=== PATIENT | male | born 1955 | race Caucasian/White ===

== ENCOUNTER 2021-06-14 10:27 | Emergency (ER) | payer OTHER, BC ==
[2021-06-14] MEDS ORDERED: DEXA6 PO (12:00)
== END 2021-06-14 12:10 | disposition home or self-care (01) ==
LOC: ER 10:27
DX: U07.1 COVID-19 (principal)
CPT/HCPCS: 99283

== ENCOUNTER 2024-07-07 09:42 | Inpatient (IN) | payer OTHER ==
[~2024-07-07] VITALS: Ht 190.5 cm; Wt 102.9 kg
[~2024-07-07 09:42] MED LIST: CALCIUM CARBONATE PO; DEXA6 PO; DILT120 PO; DOCU100 PO; FAMO20 PO; GABA100 PO; LEVSOD75 PO; LORA10ER PO; MELA3 PO; PANT40 PO; PRAZ2 PO; SENNA LAXATIVE8.6 MG PO; TOCO1000 PO; TRAZ100 PO; VENL75ER PO; XARELTO20 MG PO
[2024-07-07 10:10] LABS: Calcium, Ionized (POC) 1.06 mmol/L (1.10-1.46); Chloride (POC) 105 mmol/L (98-108); Creatinine (POC) 0.8 mg/dL (0.8-1.3); Glucose (ISTAT POC) 139 mg/dL (70-99); Hemoglobin (POC) 6.8 g/dL (13.5-17.5); Sodium (POC) 137 mmol/L (135-148); Total CO2 (POC) 23 mmol/L (21-32)
[2024-07-07] MEDS ORDERED: Pantoprazole Sodium 40 MG in NS 50 ML IV SCH (10:10)
[2024-07-07] MEDS ORDERED: NS 1,000 ML IV SCH (10:10)
[2024-07-07] MEDS ORDERED: Pantoprazole Sodium 40 MG Injection IV ONE (10:10)
[2024-07-07 10:21] LABS: BASOPHILS PERCENT AUTO 0 % (0-2); EOSINOPHILS ABSOLUTE AUTO 0.02 K/mm3 (0.00-0.68); EOSINOPHILS PERCENT AUTO 0 % (0-6); Hematocrit 20.7 % (37.0-53.0); Hemoglobin 6.5 g/dL (13.5-17.5); IMMATURE GRAN ABSOLUTE AUTO 0.05 K/mm3 (0.00-0.10); IMMATURE GRAN PERCENT AUTO 1 % (0-1); LYMPHOCYTES ABSOLUTE AUTO 0.99 K/mm3 (0.84-5.20); LYMPHOCYTES PERCENT AUTO 21 % (21-46); MONOCYTES ABSOLUTE AUTO 0.34 K/mm3 (0.16-1.47); MONOCYTES PERCENT AUTO 7 % (4-13); Mean Corpuscular HGB 26.4 pg (26.0-34.0); Mean Corpuscular HGB Conc 31.4 g/dL (31.5-36.5); Mean Corpuscular Volume 84 fL (80-100); Mean Platelet Volume 11.3 fL (9.1-12.4); NEUTROPHILS ABSOLUTE AUTO 3.31 K/mm3 (1.96-9.15); NEUTROPHILS PERCENT AUTO 70 % (41-73); Platelet Count 193 K/mm3 (150-400); RDW Coefficient Variation 15.5 % (11.7-14.2); RDW Standard Deviation 46.4 fL (35.1-46.3); Red Blood Cell Count 2.46 M/mm3 (4.30-5.90); White Blood Cell Count 4.71 K/mm3 (4.00-11.30)
[2024-07-07 10:49] LABS: Albumin, Blood 2.9 g/dL (3.4-5.0); Bilirubin, Total 0.4 mg/dL (0.1-1.0); Bun/Creatinine Ratio 39.7 (12.0-20.0); Calcium, Blood 8.4 mg/dL (8.5-10.1); Creatinine, Blood 0.86 mg/dL (0.60-1.20); Globulin, Blood 2.8 g/dL (2.2-4.0); Potassium, Blood 4.2 mmol/L (3.5-5.5); Total Protein, Blood 5.7 g/dL (6.4-8.2)
[2024-07-07] MEDS ORDERED: Sucralfate 1000MG / 10ML UD BTL PO ONE (11:05)
[2024-07-07] MEDS ORDERED: Acetaminophen 325 MG TABLET PO PRN (12:55)
[2024-07-07] MEDS ORDERED: FLU VACC TS2024-25(6MOS UP)/PF 45 MCG/0.5 ML SYRINGE IM SCH (12:55)
[2024-07-07] MEDS ORDERED: Melatonin 3 MG Tab PO PRN (14:05)
[2024-07-07] MEDS ORDERED: Sennosides 8.6 MG Tab PO PRN (14:10)
[2024-07-07 16:23] VITALS: BP 116/86
[2024-07-07] MEDS ORDERED: XARELTO20 MG PO (16:29)
[2024-07-07] MEDS ORDERED: Sucralfate 1 GM Tab PO SCH (16:30)
[2024-07-07 17:17] LABS: Hematocrit 27.6 % (37.0-53.0); Hemoglobin 8.8 g/dL (13.5-17.5)
--- NOTE | 2024-07-07 18:05 | NUR ---
SHIFT SUMMARY PATIENT ADMITED TO MEDICAL FLOOR THIS SHIFT FROM ED. A/O X4. ONE EPISODE OF RED/BLACK STOOL. RECEIVING PRBC ON ARRIVAL, FINISHED 1610. LABS TO BE DONE AT 1700, H&H RESULTED 8.8 AND 27.6. PROTONIX DRIP AT 10/HR INFUSING. SKIN INTACT. ABLE TO MAKE NEEDS KNOWN. CALL LIGHT IN REACH, CARES ONGOING.
[2024-07-07] MEDS ORDERED: Prazosin HCL 5 MG Cap PO SCH (21:00)
[2024-07-07] MEDS ORDERED: Docusate Sodium 100 MG Cap PO SCH (21:00)
[2024-07-07] MEDS ORDERED: TraZODone HCl 100 MG Tab PO SCH (21:00)
[2024-07-07] MEDS ORDERED: Gabapentin 100 MG Cap PO SCH (21:00)
[2024-07-07] MEDS ORDERED: Prazosin HCl 1 MG Cap PO SCH (21:00)
[2024-07-07 21:34] VITALS: BP 126/82
[2024-07-07] MEDS ORDERED: ALBU90OI INH (23:27)
[2024-07-07] MEDS ORDERED: ALEVE ARTHRITI100 GM TOP (23:28)
[2024-07-07] MEDS ORDERED: FAMO20 PO (23:38)
[2024-07-07] MEDS ORDERED: AQUAPHOR ITCH R28 GM TOP (23:38)
[2024-07-07] MEDS ORDERED: FLONASE ALLERG9.9 M2 (23:39)
[2024-07-07] MEDS ORDERED: HYDR25SUP PR (23:39)
[2024-07-07] MEDS ORDERED: IPRAT-ALBUT 0.5-3 ML INH (23:40)
[2024-07-07] MEDS ORDERED: MONT10T PO (23:41)
[2024-07-07] MEDS ORDERED: ANTIFUNGAL30 GM TOP (23:43)
[2024-07-08] VITALS (13 sets, daily range): BP systolic 119–140; BP diastolic 74–83
[2024-07-08 04:49] LABS: BASOPHILS ABSOLUTE AUTO 0.01 K/mm3 (0.00-0.23); BASOPHILS PERCENT AUTO 0 % (0-2); EOSINOPHILS ABSOLUTE AUTO 0.01 K/mm3 (0.00-0.68); EOSINOPHILS PERCENT AUTO 0 % (0-6); Hematocrit 21.8 % (37.0-53.0); IMMATURE GRAN ABSOLUTE AUTO 0.08 K/mm3 (0.00-0.10); IMMATURE GRAN PERCENT AUTO 2 % (0-1); LYMPHOCYTES ABSOLUTE AUTO 1.46 K/mm3 (0.84-5.20); LYMPHOCYTES PERCENT AUTO 40 % (21-46); MONOCYTES PERCENT AUTO 14 % (4-13); Mean Corpuscular HGB 27.6 pg (26.0-34.0); Mean Corpuscular HGB Conc 32.1 g/dL (31.5-36.5); Mean Corpuscular Volume 86 fL (80-100); NEUTROPHILS ABSOLUTE AUTO 1.59 K/mm3 (1.96-9.15); NEUTROPHILS PERCENT AUTO 44 % (41-73); Platelet Count 143 K/mm3 (150-400); RDW Coefficient Variation 15.6 % (11.7-14.2); Red Blood Cell Count 2.54 M/mm3 (4.30-5.90); White Blood Cell Count 3.65 K/mm3 (4.00-11.30)
[2024-07-08 05:25] LABS: Bun/Creatinine Ratio 34.1 (12.0-20.0); Calcium, Blood 8.3 mg/dL (8.5-10.1); Creatinine, Blood 0.82 mg/dL (0.60-1.20); Potassium, Blood 3.7 mmol/L (3.5-5.5)
--- NOTE | 2024-07-08 05:28 | NUR ---
SHIFT SUMMARY PATIENT RECENT GI BLEED FROM DUODENAL ULCER RECENTLY ON 06/21/24. PT HX OF PTSD, HTN, GI BLEED, AND RECENTLY DIAGNOSED LYMPHOMA. LUNGS PRESENT CLEAR BILATERALLY, NORMAL HEART SINUS RHYTHM, BOWEL SOUNDS PRESENT IN FOUR QUADRANTS. PT TOOK HS MEDIATIONS, ASKED FOR A FAN TO COOL HIS ROOM DOWN. PT POLITE AND RECEPTIVE TO CARE. BED AT LOW POSITION, RAILS TIMES 2, CALL LIGHT WITHIN REACH.
[2024-07-08] MEDS ORDERED: Levothyroxine Sodium 0.075 MG Tab PO SCH (06:00)
[2024-07-08] MEDS ORDERED: Loratadine 10 MG Tab PO SCH (09:00)
[2024-07-08] MEDS ORDERED: dilTIAZem HCL 120 MG CAP.CD PO SCH (09:00)
[2024-07-08] MEDS ORDERED: Venlafaxine HCl 75 MG CapCR PO SCH (09:00)
[2024-07-08 09:26] LABS: Hematocrit 20.9 % (37.0-53.0); Hemoglobin 6.7 g/dL (13.5-17.5)
[2024-07-08] MEDS ORDERED: NS 250 ML IV PRN (12:30)
[2024-07-08 16:25] LABS: Hematocrit 22.3 % (37.0-53.0); Hemoglobin 7.3 g/dL (13.5-17.5)
[2024-07-08 16:44] LABS: Percent Saturation 15.9 % (20.0-50.0)
[2024-07-08] MEDS ORDERED: Sod Ferric Gluc Complx/Sucrose 125 MG in NS 100 ML IV SCH (16:56)
--- NOTE | 2024-07-08 18:27 | NUR ---
PT QUITE PLEASANT TODAY, NO C/O PAIN, DID RECEIVE 1 U PRBC THIS SHIFT. H/H UP TO 7.3. SBA AMBULATORY TO BATHROOM TODAY. DR KLEIN CONTINUING PROTONIX KIM. NO REPORT OF STOOL TODAY. NO OTHER NEW CONCERNS NOTED. BED IN LOW POSITION, QALL LITE IN REACH, CALLS APPROP
[2024-07-08 21:25] LABS: Hematocrit 23.2 % (37.0-53.0); Hemoglobin 7.5 g/dL (13.5-17.5)
[2024-07-09] VITALS (10 sets, daily range): BP systolic 106–140; BP diastolic 76–87
--- NOTE | 2024-07-09 05:00 | NUR ---
SUMMARY- NO NEW ISSUES NOTED. ORDERED PROTONIX RAN CONTINOUSLY ORDERED. PT HAS BEEN VOIDING BUT NO BM THIS SHIFT. PT DENIES DIZZINESS OR WEAKNESS WHEN AMBULATING. PT HAS BEEN RESTING QUIETLY IN NO DISTRESS. CALL LIGHT IN REACH.
[2024-07-09 05:09] LABS: BASOPHILS ABSOLUTE AUTO 0.01 K/mm3 (0.00-0.23); BASOPHILS PERCENT AUTO 0 % (0-2); EOSINOPHILS ABSOLUTE AUTO 0.01 K/mm3 (0.00-0.68); EOSINOPHILS PERCENT AUTO 0 % (0-6); Hematocrit 21.8 % (37.0-53.0); Hemoglobin 6.9 g/dL (13.5-17.5); IMMATURE GRAN ABSOLUTE AUTO 0.04 K/mm3 (0.00-0.10); IMMATURE GRAN PERCENT AUTO 2 % (0-1); LYMPHOCYTES ABSOLUTE AUTO 0.73 K/mm3 (0.84-5.20); LYMPHOCYTES PERCENT AUTO 32 % (21-46); MONOCYTES PERCENT AUTO 18 % (4-13); Mean Corpuscular HGB 27.4 pg (26.0-34.0); Mean Corpuscular HGB Conc 31.7 g/dL (31.5-36.5); Mean Corpuscular Volume 87 fL (80-100); Mean Platelet Volume 11.3 fL (9.1-12.4); NEUTROPHILS ABSOLUTE AUTO 1.08 K/mm3 (1.96-9.15); NEUTROPHILS PERCENT AUTO 48 % (41-73); Platelet Count 123 K/mm3 (150-400); RDW Coefficient Variation 15.8 % (11.7-14.2); RDW Standard Deviation 47.7 fL (35.1-46.3); Red Blood Cell Count 2.52 M/mm3 (4.30-5.90); White Blood Cell Count 2.27 K/mm3 (4.00-11.30)
[2024-07-09] MEDS ORDERED: Polyethylene Glycol 3350 17 gm PO SCH (09:00)
[2024-07-09 16:11] LABS: Hematocrit 23.4 % (37.0-53.0); Hemoglobin 7.6 g/dL (13.5-17.5)
--- NOTE | 2024-07-09 17:56 | NUR ---
PATIENT IS A&OX4, PLEASANT AND COOPERATIVE. AMBULATES TO BATHROOM WITH SBAX1. RECEIVED BLOOD TRANSFUSION, HGB 7.6. PATIENT HAD NEW IV PLACED TO LEFT WRIST, IV TO RIGHT AC REMOVED. PROTONIX RUNNING CONTINUOUSLY AT 10ML/HR. PATIENT ON CLEAR LIQUID DIET. BED IN LOW POSITION AND CALL LIGHT WITHIN REACH.
--- NOTE | 2024-07-10 04:35 | NUR ---
SUMMARY- PT HAS BEEN RESTING QUIETLY THIS SHIFT. PT HAS BEEN VOIDING AND HAS NOT REPORTED ANY BM. PT ORDERED CONTINOUS PROTONIX IS RUNNING. PT TURNS SELF. CALL LIGHT IN REACH.
[2024-07-10 05:15] VITALS: BP 125/84
[2024-07-10 05:44] LABS: Hematocrit 24.2 % (37.0-53.0); Hemoglobin 7.8 g/dL (13.5-17.5); Mean Corpuscular HGB 27.9 pg (26.0-34.0); Mean Corpuscular HGB Conc 32.2 g/dL (31.5-36.5); Mean Corpuscular Volume 86 fL (80-100); Mean Platelet Volume 11.3 fL (9.1-12.4); Platelet Count 124 K/mm3 (150-400); RDW Coefficient Variation 16.1 % (11.7-14.2); RDW Standard Deviation 48.7 fL (35.1-46.3); White Blood Cell Count 2.14 K/mm3 (4.00-11.30)
[2024-07-10 06:17] LABS: Bun/Creatinine Ratio 10.5 (12.0-20.0); Calcium, Blood 8.4 mg/dL (8.5-10.1); Creatinine, Blood 0.86 mg/dL (0.60-1.20); Potassium, Blood 3.5 mmol/L (3.5-5.5)
[2024-07-10 06:38] LABS: BAND PERCENT MAN 3 % (0-8); BASOPHILS ABSOLUTE MAN 0.04 K/mm3 (0.00-0.23); BASOPHILS PERCENT MAN 2 % (0-2); EOSINOPHILS ABSOLUTE MAN 0.02 K/mm3 (0.00-0.68); EOSINOPHILS PERCENT MAN 1 % (0-6); LYMPHOCYTES % ATYPICAL MANUAL 1 % (0-0); LYMPHOCYTES ABSOLUTE MAN 0.66 K/mm3 (0.84-5.20); LYMPHOCYTES PERCENT MAN 30 % (21-46); MONOCYTES ABSOLUTE MAN 0.34 K/mm3 (0.16-1.47); MONOCYTES PERCENT MAN 16 % (4-13); MYELOCYTE ABSOLUTE MAN 0.02 K/mm3 (0.00-0.00); MYELOCYTE PERCENT MAN 1 % (0-0); NEUTROPHILS ABSOLUTE MAN 1.04 K/mm3 (1.96-9.15); SEG NEUTROPHILS PERCENT MAN 46 % (41-73); TOTAL CELLS COUNTED 100
[2024-07-10 07:48] VITALS: BP 126/87
[2024-07-10] MEDS ORDERED: Potassium Chl 20MEQ/Water100ML 100 ML IV SCH (08:05)
[2024-07-10 14:09] LABS: Hematocrit 26.7 % (37.0-53.0); Hemoglobin 8.4 g/dL (13.5-17.5)
[2024-07-10 15:05] VITALS: BP 133/82
--- NOTE | 2024-07-10 16:14 | NUR ---
PT DID HAVE ONE BLACK TARRY STOOL TO DAY. HGB APPEARS TO BE REMAINING STABLE. PLAN IS TO DISCHARGE TOMORROW. PT IS INDEPENDENT IN THE ROOM. ALERT AND ORIENTEDX4, ABLE TO MAKE NEEDS KNOWN. FULL LIQUID DIET, TOLORATING WELL. NO ACUTE CHANGES THIS SHIFT.
[2024-07-10] MEDS ORDERED: Pantoprazole Sodium 40 MG Tab PO SCH (16:30)
[2024-07-10 19:47] VITALS: BP 119/72
[2024-07-11 04:01] VITALS: BP 104/74
--- NOTE | 2024-07-11 04:49 | NUR ---
SHIFT SUMMARY PATIENT SLEPT MOST OF THE NIGHT. NO BM'S REPORTED. NO PRN MED REQUESTED.
[2024-07-11 05:49] LABS: BASOPHILS ABSOLUTE AUTO 0.01 K/mm3 (0.00-0.23); BASOPHILS PERCENT AUTO 0 % (0-2); EOSINOPHILS ABSOLUTE AUTO 0.04 K/mm3 (0.00-0.68); EOSINOPHILS PERCENT AUTO 2 % (0-6); Hematocrit 25.7 % (37.0-53.0); Hemoglobin 8.2 g/dL (13.5-17.5); IMMATURE GRAN ABSOLUTE AUTO 0.04 K/mm3 (0.00-0.10); IMMATURE GRAN PERCENT AUTO 2 % (0-1); LYMPHOCYTES ABSOLUTE AUTO 0.95 K/mm3 (0.84-5.20); LYMPHOCYTES PERCENT AUTO 36 % (21-46); MONOCYTES ABSOLUTE AUTO 0.54 K/mm3 (0.16-1.47); MONOCYTES PERCENT AUTO 21 % (4-13); Mean Corpuscular HGB Conc 31.9 g/dL (31.5-36.5); Mean Corpuscular Volume 88 fL (80-100); Mean Platelet Volume 11.3 fL (9.1-12.4); NEUTROPHILS ABSOLUTE AUTO 1.03 K/mm3 (1.96-9.15); NEUTROPHILS PERCENT AUTO 40 % (41-73); Platelet Count 133 K/mm3 (150-400); RDW Coefficient Variation 16.3 % (11.7-14.2); RDW Standard Deviation 49.8 fL (35.1-46.3); Red Blood Cell Count 2.93 M/mm3 (4.30-5.90); White Blood Cell Count 2.61 K/mm3 (4.00-11.30)
[2024-07-11 06:22] LABS: Bun/Creatinine Ratio 9.4 (12.0-20.0); Calcium, Blood 8.6 mg/dL (8.5-10.1); Creatinine, Blood 0.85 mg/dL (0.60-1.20); Potassium, Blood 3.8 mmol/L (3.5-5.5)
[2024-07-11 07:44] VITALS: BP 121/86
[2024-07-11] MEDS ORDERED: Acetaminophen650 M1 PO (11:58)
[2024-07-11] MEDS ORDERED: SUCR1 PO (11:58)
--- NOTE | 2024-07-11 15:50 | NUR ---
report received verified, pt a/o x4 very pleasent but is anxious to go home today, vss, no s/s of distress, c/o pain to right elbow from previous iv infiltrate. ice bag placed and tylenol given. into see pt discharge orders given. discharge orders implemented and pt educated. iv dced, [facility]. cont mopnitor
[2024-07-12 18:58] LABS: IMMUNOGLOBULIN A 109 mg/dL (68-408); IMMUNOGLOBULIN G 702 mg/dL (768-1632); IMMUNOGLOBULIN M 45 mg/dL (35-263)
[2024-07-12 19:47] LABS: ALBUMIN 2.96 g/dL (3.75-5.01); ALPHA 1 GLOBULIN 0.28 g/dL (0.19-0.46); ALPHA 2 GLOBULIN 0.39 g/dL (0.48-1.05); BETA GLOBULIN 0.56 g/dL (0.48-1.10); GAMMA 0.71 g/dL (0.62-1.51); IMMUNOFIXATION REFLEX IFE Done; TOTAL PROTEIN,SERUM 4.9 g/dL (6.3-8.2)
== END 2024-07-11 14:25 | disposition home or self-care (01) | DRG 378 ==
LOC: ER 09:42 → MEDS 13:53 → ENPENDDIS 07-11 11:27 → MEDS 07-11 14:25
PROVIDERS: Emergency Medicine; ADMIT Internal Medicine
PROC: 30233N1 Transfusion of Nonautologous Red Blood Cells into Peripheral Vein, Percutaneous Approach (ICD-10-PCS; principal; 2024-07-07)
DX: K26.4 Chronic or unspecified duodenal ulcer with hemorrhage (principal); C85.10 Unspecified B-cell lymphoma, unspecified site; D68.32 Hemorrhagic disorder due to extrinsic circulating anticoagulants; D62 Acute posthemorrhagic anemia; I48.0 Paroxysmal atrial fibrillation; I10 Essential (primary) hypertension; F41.8 Other specified anxiety disorders; T45.515A Adverse effect of anticoagulants, initial encounter; F43.12 Post-traumatic stress disorder, chronic; Z98.890 Other specified postprocedural states; Z87.891 Personal history of nicotine dependence; Z79.01 Long term (current) use of anticoagulants; Z86.010 Personal history of colon polyps; Z87.19 Personal history of other diseases of the digestive system; Z88.8 Allergy status to other drugs, medicaments and biological substances; Z79.890 Hormone replacement therapy; Z79.899 Other long term (current) drug therapy
CPT/HCPCS: 36415; 36430; 80047; 80048; 80053; 82728; 82784; 83521; 83540; 83550; 84155; 84165; 85014; 85018; 85025; 86334; 86850; 86900; 86901; 86923; 93005; 93010; 94760; 96365; 96366; 99285-25; A9270; J2470; J2916; J3480; J7030; J7050; P9016

== ENCOUNTER 2024-12-20 07:08 | Day surgery (SDC) | payer OTHER ==
[2024-12-20] VITALS (11 sets, daily range): BP systolic 93–122; BP diastolic 62–88
[~2024-12-20] VITALS: Ht 193 cm; Wt 97.9 kg
[~2024-12-20 07:08] MED LIST changes: +ALBU90OI INH; +ALEVE ARTHRITI100 GM TOP; +ANTIFUNGAL30 GM TOP; +AQUAPHOR ITCH R28 GM TOP; +Acetaminophen650 M1 PO; +CeFAZolin Sodium 2,000 MG VIAL ONE; +CeFAZolin Sodium 2,000 MG in NS 100 ML IV SCH; +FLONASE ALLERG9.9 M2; +HYDR25SUP PR; +IPRAT-ALBUT 0.5-3 ML INH; +Lactated Ringer's 1,000 ML IV SCH; +Lidocaine HCl 1% 30 ML SDV ONE; +METAMUCIL POWD798 GM PO; +MONT10T PO; +SUCR1 PO
[2024-12-20] MEDS ORDERED: propofoL 20 ML IV ONE (07:47)
--- NOTE | 2024-12-20 08:12 | NUR ---
Ambulatory in Day Surgery WITH CANE. BROUGHT TO UNIT VIA W/C WITH DAUGHTER. History, Chart, Medications and Allergies reviewed before start of procedure. Pre-Op teaching done. Pt verbalizes understanding. Patient States Post-Procedure ride home has been arranged WITH DAUGHTER. BELONGINGS INCLUDING CANE PLACED UNDER GURN.
[2024-12-20] MEDS ORDERED: Ondansetron HCl 2 MG / ML 2ML Vial ONE (08:42)
--- NOTE | 2024-12-20 09:50 | NUR ---
PT TO DAY SURGERY STEP DOWN FROM PACU WITH MEDIPORT PLACEMENT. BEDSIDE REPORT RECEIVED. PT IS AWAKE, ALERT AND ORIENTED; ABLE TO MOVE SELF IN BED. ASKING FOR WATER. PT HAS AN INCISION ON UPPER RIGHT CHEST THAT IS CLOSED WITH EXOFIN AND C/D/I, AND AN INCISION ON RIGHT LOWER NECK THAT IS CLOSED WITH EXOFIN AND IS C/D/I. PT DENIES PAIN AT THIS TIME.
--- NOTE | 2024-12-20 09:54 | NUR ---
PT TOLERTING PO FLUIDS. DAUGHTER AT BEDSIDE.
--- NOTE | 2024-12-20 10:05 | NUR ---
PT DECLINES HOSPITAL ICE PACK. Discharge instructions reviewed with patient. Patient verbalizes understanding. Copy given to patient to take home. Patient States Post-Procedure ride home has been arranged.
--- NOTE | 2024-12-20 10:17 | NUR ---
Patient up to Ambulate independently. Gait steady. Discharged via wheelchair to private car for ride home.
== END 2024-12-20 10:18 | disposition home or self-care (01) ==
LOC: ORSCMMR 07:08 → ORD 08:30 → ORSCMMR 08:30
DX: C88.40 Extranodal marginal zone B-cell lymphoma of mucosa-associated lymphoid tissue [MALT-lymphoma] not having achieved remission (principal); I10 Essential (primary) hypertension; I48.91 Unspecified atrial fibrillation; Z87.891 Personal history of nicotine dependence; E03.9 Hypothyroidism, unspecified; F43.10 Post-traumatic stress disorder, unspecified; Z79.899 Other long term (current) drug therapy
CPT/HCPCS: 71045; 77001; C1788; J0690; J1642; J2405; J2704; J7120

== ENCOUNTER 2024-12-24 09:54 | Emergency (ER) | payer OTHER ==
[~2024-12-24] VITALS: Ht 188 cm; Wt 90.7 kg
[~2024-12-24 09:54] MED LIST changes: -CeFAZolin Sodium 2,000 MG VIAL ONE; -CeFAZolin Sodium 2,000 MG in NS 100 ML IV SCH; -Lactated Ringer's 1,000 ML IV SCH; -Lidocaine HCl 1% 30 ML SDV ONE
[2024-12-24] MEDS ORDERED: [UNRECOGNIZED DRUG - OTHER] PO (10:27)
[2024-12-24] MEDS ORDERED: Prednisone10 MG PO (10:34)
[2024-12-24] MEDS ORDERED: TIOT18 INH (10:35)
[2024-12-24 11:28] LABS: Hemoglobin 8.7 g/dL (13.5-17.5); Mean Corpuscular HGB 23.7 pg (26.0-34.0); Mean Corpuscular HGB Conc 32.2 g/dL (31.5-36.5); Mean Corpuscular Volume 74 fL (80-100); RDW Coefficient Variation 16.3 % (11.7-14.2); RDW Standard Deviation 43.7 fL (35.1-46.3); Red Blood Cell Count 3.67 M/mm3 (4.30-5.90); White Blood Cell Count 6.73 K/mm3 (4.00-11.30)
[2024-12-24 11:32] LABS: Albumin, Blood 2.5 g/dL (3.4-5.0); Albumin/Globulin Ratio 0.6 (0.8-1.8); Bilirubin, Indirect 1.5 mg/dL (0.1-0.7); Bilirubin, Total 5.5 mg/dL (0.1-1.0); Bun/Creatinine Ratio 13.8 (12.0-20.0); Calcium, Blood 8.6 mg/dL (8.5-10.1); Creatinine, Blood 0.65 mg/dL (0.60-1.20); Globulin, Blood 3.9 g/dL (2.2-4.0); Potassium, Blood 3.4 mmol/L (3.5-5.5); Total Protein, Blood 6.4 g/dL (6.4-8.2)
[2024-12-24 12:10] LABS: BASOPHILS PERCENT MAN 0 % (0-2); EOSINOPHILS PERCENT MAN 0 % (0-6); LYMPHOCYTES ABSOLUTE MAN 0.06 K/mm3 (0.84-5.20); LYMPHOCYTES PERCENT MAN 1 % (21-46); MONOCYTES ABSOLUTE MAN 1.41 K/mm3 (0.16-1.47); MONOCYTES PERCENT MAN 21 % (4-13); Mean Platelet Volume 11.8 fL (9.1-12.4); NEUTROPHILS ABSOLUTE MAN 5.24 K/mm3 (1.96-9.15); Platelet Count 123 K/mm3 (150-400); SEG NEUTROPHILS PERCENT MAN 78 % (41-73); TOTAL CELLS COUNTED 100
[2024-12-24 14:05] VITALS: BP 116/77
== END 2024-12-24 14:30 | disposition home or self-care (01) ==
LOC: ER 09:54
PROVIDERS: Student in an Organized Health Care Education/Training Program
DX: D64.9 Anemia, unspecified (principal); N99.518 Other cystostomy complication; I48.0 Paroxysmal atrial fibrillation; I10 Essential (primary) hypertension; C88.40 Extranodal marginal zone B-cell lymphoma of mucosa-associated lymphoid tissue [MALT-lymphoma] not having achieved remission; Z87.891 Personal history of nicotine dependence; Z88.8 Allergy status to other drugs, medicaments and biological substances; Z79.899 Other long term (current) drug therapy
CPT/HCPCS: 72170; 80053; 82247; 82248; 83690; 85025; 86850; 86900; 86901; 99284-25

== ENCOUNTER 2025-01-01 09:07 | Day surgery (SDC) | payer OTHER ==
[~2025-01-01] VITALS: Ht 190.5 cm; Wt 95.0 kg
[~2025-01-01 09:07] MED LIST changes: +Prednisone10 MG PO; +TIOT18 INH; +[UNRECOGNIZED DRUG - OTHER] PO
[2025-01-01] MEDS ORDERED: NS 1,000 ML IV ONE (09:24)
[2025-01-01] MEDS ORDERED: NS 250 ML IV ONE (09:26)
[2025-01-01 09:45] VITALS: BP 121/87
[2025-01-01] MEDS ORDERED: Midazolam HCl 1MG / ML 2ML Vial ONE (10:12)
[2025-01-01] MEDS ORDERED: FentaNYL Citrate 50 MCG/ML 2 ML Injection ONE (10:13)
[2025-01-01 11:15] VITALS: BP 116/81
--- NOTE | 2025-01-01 11:31 | NUR ---
PT AND DAUGHTER VERBALIZES UNDERSTANDING WRITTEN AND VERBAL INSTRUCTIONS. DENIES QUESTIONS OR CONCERNS. PT MEDIPORT HEPORONIZED PRIOR TO DC. LI NEEDLE INTACT. NO BLEEDING NOTED. BANDAID APPLIED. PT DRESSES SELF WITHOUT DIFF. PT DC TO HOME VIA WC BY DAUGHTER
== END 2025-01-01 12:22 | disposition home or self-care (01) ==
LOC: MHTC 09:07
DX: T85.590A Other mechanical complication of bile duct prosthesis, initial encounter (principal); Y83.8 Other surgical procedures as the cause of abnormal reaction of the patient, or of later complication, without mention of misadventure at the time of the procedure; C85.90 Non-Hodgkin lymphoma, unspecified, unspecified site
CPT/HCPCS: 47536; 99152; C1729; C1769; C1887; J1642; J2250; J3010; J7030; J7050; Q9967

== ENCOUNTER 2025-01-07 12:35 | Inpatient (IN) | payer OTHER ==
[~2025-01-07] VITALS: Ht 190.5 cm; Wt 97.3 kg
[2025-01-07 13:45] LABS: BASOPHILS ABSOLUTE AUTO 0.02 K/mm3 (0.00-0.23); BASOPHILS PERCENT AUTO 0 % (0-2); EOSINOPHILS ABSOLUTE AUTO 0.02 K/mm3 (0.00-0.68); EOSINOPHILS PERCENT AUTO 0 % (0-6); Hematocrit 37.9 % (37.0-53.0); Hemoglobin 12.1 g/dL (13.5-17.5); IMMATURE GRAN ABSOLUTE AUTO 0.24 K/mm3 (0.00-0.10); IMMATURE GRAN PERCENT AUTO 3 % (0-1); LYMPHOCYTES ABSOLUTE AUTO 0.21 K/mm3 (0.84-5.20); LYMPHOCYTES PERCENT AUTO 3 % (21-46); MONOCYTES ABSOLUTE AUTO 0.74 K/mm3 (0.16-1.47); MONOCYTES PERCENT AUTO 9 % (4-13); Mean Corpuscular HGB Conc 31.9 g/dL (31.5-36.5); Mean Corpuscular Volume 72 fL (80-100); NEUTROPHILS ABSOLUTE AUTO 7.24 K/mm3 (1.96-9.15); NEUTROPHILS PERCENT AUTO 86 % (41-73); Platelet Count 91 K/mm3 (150-400); RDW Coefficient Variation 18.5 % (11.7-14.2); RDW Standard Deviation 45.7 fL (35.1-46.3); Red Blood Cell Count 5.26 M/mm3 (4.30-5.90); White Blood Cell Count 8.47 K/mm3 (4.00-11.30)
[2025-01-07] MEDS ORDERED: Ondansetron HCl 2 MG / ML 2ML Vial IV ONE (14:05)
[2025-01-07 14:06] LABS: Albumin, Blood 2.8 g/dL (3.4-5.0); Albumin/Globulin Ratio 0.7 (0.8-1.8); Bilirubin, Total 3.9 mg/dL (0.1-1.0); Creatinine, Blood 1.5 mg/dL (0.60-1.20); Globulin, Blood 4.2 g/dL (2.2-4.0); Potassium, Blood 3.3 mmol/L (3.5-5.5)
[2025-01-07] MEDS ORDERED: Piperacillin/Tazobactam Sod 4.5 GM in NS 100 ML IV ONE (14:50)
[2025-01-07] MEDS ORDERED: Vancomycin HCL 1,250 MG in NS 250 ML IV ONE (15:05)
[2025-01-07] MEDS ORDERED: NS 1,000 ML IV SCH (15:20)
[2025-01-07] MEDS ORDERED: Metoclopramide HCl 5MG / ML 2ML Vial IV PRN (18:20)
[2025-01-07] MEDS ORDERED: Ondansetron HCl 2 MG / ML 2ML Vial IV PRN (18:20)
[2025-01-07] MEDS ORDERED: Potassium Chloride 20 MEQ TabCR PO ONE (19:00)
[2025-01-07] MEDS ORDERED: Lactated Ringer's 1,000 ML IV ONE (19:00)
[2025-01-07] MEDS ORDERED: Albuterol HFA200 ACT/6.7 GM INH INH PRN (19:00)
[2025-01-07] MEDS ORDERED: Lactated Ringer's 1,000 ML IV SCH (20:00)
[2025-01-07] MEDS ORDERED: Magnesium Sulf 2 GM/Water 50ML 50 ML IV STA (20:24)
[2025-01-07] MEDS ORDERED: Potassium Chl 20MEQ/Water100ML 100 ML IV STA (20:25)
[2025-01-07 20:28] VITALS: BP 103/68
[2025-01-07] MEDS ORDERED: Melatonin 3 MG Tab PO SCH (21:00)
[2025-01-07] MEDS ORDERED: TraZODone HCl 100 MG Tab PO SCH (21:00)
[2025-01-07] MEDS ORDERED: Prazosin HCl 1 MG Cap PO SCH (21:00)
[2025-01-07] MEDS ORDERED: Lactobacil 2-S.Thermo-Bifido 1 1 Cap PO SCH (21:00)
[2025-01-07] MEDS ORDERED: Gabapentin 100 MG Cap PO SCH (21:00)
[2025-01-07] MEDS ORDERED: Cefepime HCl 2,000 MG in NS 100 ML IV SCH (21:00)
--- NOTE | 2025-01-07 23:00 | NUR ---
ASSUMPTION OF CARE/TRANSFER NOTE THIS RN RECEIVED REPORT FROM LOUISE NKUTSON IN THE ED. PT TRANSFERRED TO PCU. PT SLID FROM GURNEY TO BED WITH ASSISTANCE. DAUGHTER AT BEDSIDE AND REPORTS PT HAS NOT BEEN ABLE TO STAND INDEPENDENTLY AND HAS BEEN WEEK AND UNSTEADY ON HIS FEET AT HOME. DAUGHTER NOW LIVES WITH PATIENT. PT A&O X3-4. FORGETFUL. DAUGHTER AND PATIENT REPORT RECENT COGNITIVE PROBLEMS WITH MEMORY AND CONFUSION. PT DENIES ABDOMINAL PAIN A REST UNLESS PALPATING ABDOMEN. BILIAR DRAIN TO RUQ TO DRAIN BILE. ST ON MONITOR WITH HR 100-110. ON RA WITH SPO2 >92% WHILE AWAKE; PT NOTED TO DESAT WHILE SLEEPING TO LOW-MID 80'S; PLACED ON 2L VIA NC. BP SOFT WITH SBP 90-100'S. MAP >65. TACHYPNEA NOTED WITH RR 22-24. PT CONTINENT OF URINE, USING URINAL IN BED WITH ASSISTANCE. DAUGHTER AT BEDSIDE TO ASSIST WITH HISTORY. MED REC DONE. POWERGLIDE PLACED. LR INFUSING PER EMAR. KCL AND MAG INFUSED PER EMAR. PT DENIES CHEST PAIN/PRESSURE. OCCASIONAL PVC'S NOTED ON MONITOR. BED IN LOWEST POSITION AND CALL LIGHT WITHIN REACH. BED ALARM ON FOR SAFETY.
[2025-01-07 23:39] VITALS: BP 100/60
[2025-01-08] VITALS (17 sets, daily range): BP systolic 78–136; BP diastolic 60–99
[2025-01-08] MEDS ORDERED: MetroNIDAZOLE 500MG/NS 100 ml 100 ML IV SCH
[2025-01-08] MEDS ORDERED: Vancomycin HCL 750 MG in NS 250 ML IV SCH (05:00)
[2025-01-08 05:19] LABS: Albumin/Globulin Ratio 0.6 (0.8-1.8); Bilirubin, Total 2.7 mg/dL (0.1-1.0); Bun/Creatinine Ratio 39.2 (12.0-20.0); Calcium, Blood 7.6 mg/dL (8.5-10.1); Creatinine, Blood 0.84 mg/dL (0.60-1.20); Globulin, Blood 3.2 g/dL (2.2-4.0); Magnesium, Blood 2.1 mg/dL (1.6-2.4); Potassium, Blood 3.6 mmol/L (3.5-5.5); Total Protein, Blood 5.2 g/dL (6.4-8.2)
[2025-01-08] MEDS ORDERED: Pantoprazole Sodium 40 MG Tab PO SCH (06:00)
[2025-01-08] MEDS ORDERED: Levothyroxine Sodium 0.075 MG Tab PO SCH (06:00)
--- NOTE | 2025-01-08 06:00 | NUR ---
PATIENT SUMMURY: ALERT AND ORIENTED X 3-4 WITH FORGETFULLNESS. SINUS TACHICARDIA IN THE 100 -110'S THROUGHOUT THE NIGHT. ON 2 LITERS NASAL CANULA WHILE SLEEPING AND SATURATION > 90. BLOOD PRESSURE SOFT IN THE 90-100 AND MAP >65. TACHYPNEIC WITH RESPIRATORY RATE OF 22-24. BILLIARY DRAIN TO RUQ IS PATENT AND BILIARY SITE DRESSING INTACT. REPORTS TENDERNESS ON PALPATION OF RUQ. DENIES ABDOMINAL PAIN. CALL LIGHT IS WITHIN REACH AND BED IS AT THE LOWEST POSITION. BED ALARM ON FOR SAFETY.
[2025-01-08 06:13] LABS: Hematocrit 26.5 % (37.0-53.0); Hemoglobin 8.2 g/dL (13.5-17.5); Mean Corpuscular HGB 22.8 pg (26.0-34.0); Mean Corpuscular HGB Conc 30.9 g/dL (31.5-36.5); Mean Corpuscular Volume 74 fL (80-100); RDW Coefficient Variation 18.5 % (11.7-14.2); RDW Standard Deviation 47.5 fL (35.1-46.3)
[2025-01-08 06:28] LABS: Platelet Count 57 K/mm3 (150-400)
[2025-01-08 06:36] LABS: BAND PERCENT MAN 4 % (0-8); BASOPHILS PERCENT MAN 0 % (0-2); EOSINOPHILS PERCENT MAN 0 % (0-6); LYMPHOCYTES PERCENT MAN 3 % (21-46); MONOCYTES ABSOLUTE MAN 0.82 K/mm3 (0.16-1.47); MONOCYTES PERCENT MAN 8 % (4-13); NEUTROPHILS ABSOLUTE MAN 9.16 K/mm3 (1.96-9.15); SEG NEUTROPHILS PERCENT MAN 85 % (41-73); TOTAL CELLS COUNTED 100
[2025-01-08] MEDS ORDERED: HYDROmorphone HCl/Pf 1MG SYR IV PRN (08:40)
[2025-01-08] MEDS ORDERED: Loratadine 10 MG Tab PO SCH (09:00)
[2025-01-08] MEDS ORDERED: Venlafaxine HCl 75 MG CapCR PO SCH (09:00)
[2025-01-08] MEDS ORDERED: Montelukast Sodium 10 MG Tab PO SCH (09:00)
[2025-01-08] MEDS ORDERED: dilTIAZem HCL 120 MG CAP.CD PO SCH (09:00)
[2025-01-08] MEDS ORDERED: Heparin Sodium,Porcine 5,000 UNIT/0.5 ML SDV SC SCH (09:00)
[2025-01-08] MEDS ORDERED: Lactated Ringer's 500 ML IV ONE (10:20)
[2025-01-08] MEDS ORDERED: NS 1,000 ML IV SCH (11:15)
[2025-01-08] MEDS ORDERED: Metoprolol Tartrate 25 MG Tab PO SCH (12:00)
[2025-01-08 12:30] LABS: Hematocrit 27.5 % (37.0-53.0); Hemoglobin 8.7 g/dL (13.5-17.5)
[2025-01-08 15:53] LABS: Source, Urine Clean Catch
[2025-01-08 15:58] LABS: Appearance, Urine Hazy (Clear); Blood, Urine 1+ (Neg); Color, Urine Amber (P-Yellow); Glucose Qualitative, Urine Neg (Neg); Ketones, Urine Neg (Neg); Leukocyte Esterase, Urine 1+ (Neg); Nitrite, Urine Neg (Neg); Protein, Urine 2+ (Neg); Specific Gravity, Urine 1.025 (1.003-1.022); Urobilinogen, Urine NORM (Normal)
[2025-01-08] MEDS ORDERED: Piperacillin/Tazobactam Sod 4.5 GM in NS 100 ML IV SCH (16:00)
[2025-01-08 16:13] LABS: Bilirubin, Urine 1+ (Neg)
[2025-01-08 16:15] LABS: Amorphous Mod (0-Heavy)
[2025-01-08 16:16] LABS: Red Blood Cells, Urine 0-2 /hpf (0-2)
[2025-01-08 16:17] LABS: Bacteria Few /hpf; Squamous Epithelial Cells Not Seen /hpf (Few)
--- NOTE | 2025-01-08 17:18 | NUR ---
Spiritual care visit conducted. Patient has some chemo brain fog and struggles a bit to get to his point but he manages to get there. He shares personal stories about his johnson with cancer, about his family and about the thoughts of feeling overwhelmed when his body is not well. I provided therapeutic lsitening and prayer. Patient responded well and showed signs of catharsis and increased peace. I will continue to remain available to patient and family.
--- NOTE | 2025-01-08 18:30 | NUR ---
PT SUMMARY; DR RAINEY CAME IN TO SEE PT TODAY AND WAS ABLE TO DISCUSS PLANS, NO SURGERY AT THIS TIME, ODERED HIDA SCAN FOR IN AM. VITALS HRR AFIB UP TO 160'S WITH EXERTION, 100-120'S AT REST PT STARTED ON METOPROLOLNAD CARDIZEM HOME DOSE RESTARTED, PT ALSO WAS GIVE 500MLS LR BOLUS, SBP HAS BEEN SOFT 90-110'S, SATS ABOVE 90% ON RA, AFEBRILE. PT WAS C/O RUQ PAIN THIS MORNING IV DILAUDID 1MG ORDERED Q6 HRS FOR PAIN, WAS GIVEN ONCE FOR THE SHIFT. BILIARY DUCT DRAIN EMPTIED COUPLE TIMES FOR THE SHIFT DRAINAGE DARK YELLOW IN COLOR. PT USING URINAL FOR VOIDING, URINE RED/TEA COLORED. DAUGHTER CAME IN TO VISIT ABLE TO GIVE UPDATES REGARDING PT'S STATUS. PT HAS LOOSE BM BY THE END OF SHIFT. PT STARTED ON CLEAR LIQUID DIET, TOLERATING AT THIS TIME. PT HAS BEEN CALLING APPROPRIATELY WILL REPORT TO ONCOMING SHIFT
[2025-01-08 19:51] LABS: Hematocrit 28.5 % (37.0-53.0)
[2025-01-08] MEDS ORDERED: Acetaminophen 325 MG TABLET PO PRN (20:55)
[2025-01-08] MEDS ORDERED: PRAZOSIN HCL PO SCH (21:00)
[2025-01-09] VITALS (8 sets, daily range): BP systolic 91–124; BP diastolic 63–85
[2025-01-09 04:34] LABS: BASOPHILS ABSOLUTE AUTO 0.01 K/mm3 (0.00-0.23); BASOPHILS PERCENT AUTO 0 % (0-2); EOSINOPHILS ABSOLUTE AUTO 0.02 K/mm3 (0.00-0.68); EOSINOPHILS PERCENT AUTO 0 % (0-6); Hematocrit 24.3 % (37.0-53.0); Hemoglobin 7.5 g/dL (13.5-17.5); IMMATURE GRAN PERCENT AUTO 2 % (0-1); LYMPHOCYTES ABSOLUTE AUTO 0.19 K/mm3 (0.84-5.20); LYMPHOCYTES PERCENT AUTO 2 % (21-46); MONOCYTES ABSOLUTE AUTO 0.58 K/mm3 (0.16-1.47); MONOCYTES PERCENT AUTO 7 % (4-13); Mean Corpuscular HGB 22.7 pg (26.0-34.0); Mean Corpuscular HGB Conc 30.9 g/dL (31.5-36.5); Mean Corpuscular Volume 74 fL (80-100); NEUTROPHILS PERCENT AUTO 88 % (41-73); Platelet Count 60 K/mm3 (150-400); RDW Coefficient Variation 18.4 % (11.7-14.2); RDW Standard Deviation 47.8 fL (35.1-46.3)
[2025-01-09 05:02] LABS: Albumin, Blood 1.7 g/dL (3.4-5.0); Albumin/Globulin Ratio 0.6 (0.8-1.8); Bilirubin, Total 2.2 mg/dL (0.1-1.0); Bun/Creatinine Ratio 30.3 (12.0-20.0); Calcium, Blood 7.3 mg/dL (8.5-10.1); Creatinine, Blood 0.82 mg/dL (0.60-1.20); Potassium, Blood 3.4 mmol/L (3.5-5.5); Total Protein, Blood 4.7 g/dL (6.4-8.2)
--- NOTE | 2025-01-09 05:27 | NUR ---
SHIFT SUMMURY: ALERT AND ORENTED x 3 WITH PERIODS OF FORGETFULNESS. BLOOD PRESSURE SOFT WITH MAP > 65,MD AWARE. NO NEW ORDERS. SATURATION > 90. NORMAL SALINE INFUSING AT 125ML/ HOUR. MAINTAINS NPO STATUS FOR HIDA SCAN IN AM. BILLIARY DRAIN INTACT AND DRAINING BROWN COLORED OUTPUT. DENIES ABDOMINAL PAIN. REPORTS MILD TENDERNESS ON THE RIGHT UPPER QUADRANT ON PALPATION. CALL LIGHT IS WITHIN REACH AND BED IS AT THE LOWEST POSITION.
--- NOTE | 2025-01-09 09:52 | NUR ---
Assumed Care Assumed care from day shift RN at approx 0815. Pt gone to imaging upon care assumption.
--- NOTE | 2025-01-09 10:15 | NUR ---
Medical Status Pt back to after HIDA scan complete. Pt A&O x4. VSS. Spo2 > 92% on RA. Monitor showing SR prior to telemetry removal. Pt made medical no telemetry status by . Pt on clear liquid diet. Billiary drain w/ liquid dark green/brown output.
[2025-01-09 15:36] LABS: Percent Saturation 7.3 % (20.0-50.0)
[2025-01-09] MEDS ORDERED: Iron Dextran 50 MG / ML 2ML Vial IV ONE (16:00)
[2025-01-09] MEDS ORDERED: Potassium Chloride 40 MEQ in NS 250 ML IV SCH (16:00)
[2025-01-09] MEDS ORDERED: Iron Dextran 975 MG in NS 250 ML IV SCH (17:00)
--- NOTE | 2025-01-09 18:14 | NUR ---
End of Shift Pt continues to be A&O x4. [place]. Forgetful at times. VSS. Medical no telemetry status. Spo2 > 92% on RA. HIDA scan complete this AM. NS gtt infusing per orders. K Cl gtt infusing per orders. First dose iron given to pt w/ pt tolerating well. Pt reporting previously having had iron transfusions w/ no adverse reactions.
[2025-01-10] VITALS (17 sets, daily range): BP systolic 82–142; BP diastolic 61–127
--- NOTE | 2025-01-10 05:55 | NUR ---
PATIENT SUMMURY: A & O X 3 WITH PERIODS OF FORGETFULNESS. ON RA WITH SATURATION > 90. MEDICAL NO TELI. BP SOFT 102/70. NORMAL SALINE AT 125ML/HR. RUQ BILLIARY DRAIN IS PATENT AND DRAINING BROWN BILE. DENIES PAIN AT THIS TIME. CALL SALAZAR IS WITHIN REACH AND BED IS AT THE LOWEST POSITION.
[2025-01-10 05:58] LABS: BASOPHILS ABSOLUTE AUTO 0.01 K/mm3 (0.00-0.23); BASOPHILS PERCENT AUTO 0 % (0-2); EOSINOPHILS ABSOLUTE AUTO 0.01 K/mm3 (0.00-0.68); EOSINOPHILS PERCENT AUTO 0 % (0-6); Hematocrit 28.7 % (37.0-53.0); IMMATURE GRAN ABSOLUTE AUTO 0.09 K/mm3 (0.00-0.10); IMMATURE GRAN PERCENT AUTO 1 % (0-1); LYMPHOCYTES ABSOLUTE AUTO 0.29 K/mm3 (0.84-5.20); LYMPHOCYTES PERCENT AUTO 4 % (21-46); MONOCYTES PERCENT AUTO 8 % (4-13); Mean Corpuscular HGB 23.1 pg (26.0-34.0); Mean Corpuscular HGB Conc 31.4 g/dL (31.5-36.5); Mean Corpuscular Volume 74 fL (80-100); NEUTROPHILS ABSOLUTE AUTO 6.71 K/mm3 (1.96-9.15); NEUTROPHILS PERCENT AUTO 87 % (41-73); Platelet Count 83 K/mm3 (150-400); RDW Coefficient Variation 18.6 % (11.7-14.2); RDW Standard Deviation 47.8 fL (35.1-46.3); Red Blood Cell Count 3.89 M/mm3 (4.30-5.90); White Blood Cell Count 7.71 K/mm3 (4.00-11.30)
[2025-01-10 06:16] LABS: Albumin, Blood 1.8 g/dL (3.4-5.0); Albumin/Globulin Ratio 0.6 (0.8-1.8); Bilirubin, Total 2.3 mg/dL (0.1-1.0); Bun/Creatinine Ratio 20.3 (12.0-20.0); Calcium, Blood 7.6 mg/dL (8.5-10.1); Creatinine, Blood 0.64 mg/dL (0.60-1.20); Globulin, Blood 3.2 g/dL (2.2-4.0); Magnesium, Blood 1.9 mg/dL (1.6-2.4); Phosphorus, Blood 2.2 mg/dL (2.5-4.9); Potassium, Blood 3.6 mmol/L (3.5-5.5)
[2025-01-10] MEDS ORDERED: Lidocaine 4% 1 Patch TOP SCH (08:00)
[2025-01-10] MEDS ORDERED: Ketorolac Tromethamine 30mg Vial IV ONE (10:25)
[2025-01-10] MEDS ORDERED: Ketorolac Tromethamine 15mg Vial IV PRN (10:25)
[2025-01-10] MEDS ORDERED: Metoprolol Tartrate 1 MG/ML 5 ML VIAL IV ONE ×2 (10:35→13:55)
--- NOTE | 2025-01-10 13:53 | NUR ---
UPDATE UPON CARE ASSUMPTION, MD RAINEY IN ROOM. PT SP02 INDICATED ELEVATED HR. MD RAINEY W/ ORDER FOR EKG/TELE. SEE RESULTS. MD KAPADIA NOTIFIED OF PT AFIB RVR. 5MG LOPRESSOR PUSH X1 GIVEN. CONTINUING T/O SHIFT, PT'S HR REMAINS 120'S-130'S. CALL PLACED TO MD KAPADIA. W/ ORDERS TO INCREASED BID PO METOPROLOL AND ADDITIONAL X1 PUSH OF LOPRESSOR, SEE EMAR. PT INITALLY C/O OF SHOULDER AND ABD PAIN. MD RAINEY W/ ORDERS FOR LIDOCAINE PATCH FOR SHOULDER. DEBD BROUGHT IN FOR ABD PAIN EMAR BUT PT STATES PAIN 'WENT AWAY'. PUNEET WASTED WITH SECONDARY RN. TORADOL GIVEN X1. PT CURRENTLY SLEEPING IN ROOM.
[2025-01-10] MEDS ORDERED: Potassium Chloride 20 MEQ TabCR PO ONE (14:40)
[2025-01-10] MEDS ORDERED: Digoxin 0.25 MG/ML 2ML Amp IV SCH (14:45)
--- NOTE | 2025-01-10 18:11 | NUR ---
SHIFT SUMMARY PT A&OX4, SLEEPY INTERMITTENTLY. CAN FALL ASLEEP MID CONVERSATION. SP02>90% ON RA. TELEMETRY SHOWS AFIB, HR 130'S. SECOND DOSE OF LOPRESSOR NOT GIVEN D/T SOFT BP. CALL PLACED TO MD KAPADIA. ORDERS PLACED FOR DIG LOADING. HR CURRENTLY 130'S. DENIES ABD PAIN, CONTINUES TO C/O L SHOULDER PAIN, LIDOCAIN PATCH IN PLACE. BILIARY DRAIN DRAINING TO GRAVITY DARK YELLOW LIQUID. MD NICHOLSON IN ROOM FOR CONSULT. MD RAINEY/BHARAT W/ ORDERS TO WAIT OVER WEEKEND TO SEE IF PT CONTINUES TO IMPROVE AND REASSESS MONDAY. USED URINAL TO VOID. FLUIDS INFUSED PER EMAR. ABX INFUSED PER EMAR. DAUGHTER IN ROOM VISITING. PT SITTING ON SIDE OF BED EATING DINNER. CALL LIGHT IN REACH.
--- NOTE | 2025-01-10 19:57 | NUR ---
ASSUMPTION OF CARE ASSEMD PT'S CARE AT 1900,BEDSIDE REPORT COMPLETED WITH [facility] NURSE.PT AWAKE,RESTING IN BED WATCHING TV.PLAN OF CARE REVIEWED.R 10'-150'S,SBP 100'S.PT DENIES PAIN AT THS TIME,DENIES SOB,DENIES NAUSEA.PT REQUESTED SLEEPING MD WITH HS MED PASS.DENIES FURTHER NEEDS.CALL LIGHT ND PT'S ITEMS WITHIN REACH.WILL CONTINUE TO MONITOR.
[2025-01-10] MEDS ORDERED: Metoprolol Tartrate 50 MG Tab PO SCH (21:00)
[2025-01-11] VITALS (10 sets, daily range): BP systolic 94–121; BP diastolic 50–105
[2025-01-11 03:51] LABS: BASOPHILS PERCENT AUTO 0 % (0-2); EOSINOPHILS PERCENT AUTO 0 % (0-6); Hematocrit 26.3 % (37.0-53.0); Mean Corpuscular HGB 22.6 pg (26.0-34.0); Mean Corpuscular HGB Conc 30.4 g/dL (31.5-36.5); Mean Corpuscular Volume 74 fL (80-100); Platelet Count 58 K/mm3 (150-400); RDW Coefficient Variation 18.6 % (11.7-14.2); Red Blood Cell Count 3.54 M/mm3 (4.30-5.90); White Blood Cell Count 3.49 K/mm3 (4.00-11.30)
[2025-01-11 03:52] LABS: IMMATURE GRAN ABSOLUTE AUTO 0.05 K/mm3 (0.00-0.10); IMMATURE GRAN PERCENT AUTO 1 % (0-1); LYMPHOCYTES ABSOLUTE AUTO 0.29 K/mm3 (0.84-5.20); LYMPHOCYTES PERCENT AUTO 8 % (21-46); MONOCYTES ABSOLUTE AUTO 0.31 K/mm3 (0.16-1.47); MONOCYTES PERCENT AUTO 9 % (4-13); NEUTROPHILS ABSOLUTE AUTO 2.84 K/mm3 (1.96-9.15); NEUTROPHILS PERCENT AUTO 81 % (41-73)
[2025-01-11 04:22] LABS: Digoxin (Lanoxin) 1.65 ug/mL (0.80-2.00)
[2025-01-11 04:23] LABS: Anion Gap 8 mmol/L (3-11); Blood Urea Nitrogen 13 mg/dL (8-24); Bun/Creatinine Ratio 22.6 (12.0-20.0); CO2, Blood 25 mmol/L (21-32); Calcium, Blood 7.1 mg/dL (8.5-10.1); Chloride, Blood 105 mmol/L (98-108); Creatinine, Blood 0.58 mg/dL (0.60-1.20); Glomerular Filtration Rate 105 (60-); Glucose, Blood 109 mg/dL (70-99); Potassium, Blood 4.1 mmol/L (3.5-5.5); Sodium, Blood 134 mmol/L (136-145)
--- NOTE | 2025-01-11 06:50 | NUR ---
PT HAS BEEN SLEEPING ON/OFF THROUGHOUT THE NIGHT.PT FALLS ASLEEP EASILY,NEEDS A LOT OF CUEING TO COMPLETE A TASK.PT BLADDER SCANNED THIS MORNING 442ML IN BLADDER.PT FELL ASLEEP EVERYTIME HE TRIED TO USE THE URINAL.THIS MORNING WITH A LOT OF CUEING ATTEMPTED TO USE THE URINAL BUT WAS NOT ABLE TO VOID.PT INITIALLY REFUSED TO BE STRAIGHT CATHED BUT AGREED THIS MORNING.500ML OF TEA COLORED URINE OBTAINED VIA STRAIGHT CATH.PT DENIES PAIN,DENIES NEEDS.PT SLEEPING AT THIS TIME.CALL LIGHT AND PT'S ITEMS WITHIN REACH.WILL GIVE REPORT TO DAYSHIFT NURSE FOR CONTINUITY OF CARE.
--- NOTE | 2025-01-11 11:37 | NUR ---
UPDATE REPORT GIVEN TO PIO KNUTSON TO ASSUME CARE
--- NOTE | 2025-01-11 11:42 | NUR ---
assumption of care this rn assumed care from scott bobo at this time.
--- NOTE | 2025-01-11 12:30 | NUR ---
update patient daughter in room and this rn updated
--- NOTE | 2025-01-11 17:00 | NUR ---
call to this rn called md peterson to inform of st changes on tele and rate in the 130s-140s now. orders placed to start iv amio. see orders
--- NOTE | 2025-01-11 18:36 | NUR ---
SHIFT SUMMARY this rn called md peterson at 1830 to update on patient not voiding this rn shift and only 333ml in bladder when bladder scanned, orders for renal pannel in the am for labs. patient started on amio. vital signs stable. 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
--- NOTE | 2025-01-11 19:29 | NUR ---
ASSUMPTION OF CARE ASSUMED PT'S CARE AT 1900,BEDSIDE REPORT COMPLETED WITH DAYSAKFT NURSE.PT WIDE AWAKE AND ALERT.PLAN OF CARE REVIEWED.PT DENIES PAIN,DENIES SOB,DENIES NEEDS.CALL LIGHT AND PT'S ITEMS WITHIN REACH.WILL CONTINUE TO MONITOR.
[2025-01-12] VITALS (9 sets, daily range): BP systolic 90–119; BP diastolic 59–86
[2025-01-12 05:35] LABS: BASOPHILS PERCENT AUTO 0 % (0-2); EOSINOPHILS ABSOLUTE AUTO 0.02 K/mm3 (0.00-0.68); EOSINOPHILS PERCENT AUTO 1 % (0-6); Hematocrit 24.5 % (37.0-53.0); Hemoglobin 7.4 g/dL (13.5-17.5); Mean Corpuscular HGB 22.6 pg (26.0-34.0); Mean Corpuscular HGB Conc 30.2 g/dL (31.5-36.5); Mean Corpuscular Volume 75 fL (80-100); Platelet Count 57 K/mm3 (150-400); RDW Coefficient Variation 18.7 % (11.7-14.2); RDW Standard Deviation 49.3 fL (35.1-46.3); Red Blood Cell Count 3.27 M/mm3 (4.30-5.90); White Blood Cell Count 3.42 K/mm3 (4.00-11.30)
[2025-01-12 05:49] LABS: IMMATURE GRAN ABSOLUTE AUTO 0.05 K/mm3 (0.00-0.10); IMMATURE GRAN PERCENT AUTO 2 % (0-1); LYMPHOCYTES PERCENT AUTO 15 % (21-46); MONOCYTES ABSOLUTE AUTO 0.44 K/mm3 (0.16-1.47); MONOCYTES PERCENT AUTO 13 % (4-13); NEUTROPHILS ABSOLUTE AUTO 2.41 K/mm3 (1.96-9.15); NEUTROPHILS PERCENT AUTO 70 % (41-73)
[2025-01-12 06:05] LABS: Anion Gap 8 mmol/L (3-11); Blood Urea Nitrogen 11 mg/dL (8-24); Bun/Creatinine Ratio 18.1 (12.0-20.0); CO2, Blood 25 mmol/L (21-32); Calcium, Blood 7.3 mg/dL (8.5-10.1); Chloride, Blood 106 mmol/L (98-108); Creatinine, Blood 0.61 mg/dL (0.60-1.20); Glomerular Filtration Rate 103 (60-); Glucose, Blood 118 mg/dL (70-99); Potassium, Blood 3.8 mmol/L (3.5-5.5); Sodium, Blood 135 mmol/L (136-145)
--- NOTE | 2025-01-12 06:25 | NUR ---
PT SLEPT MOST OF THE NIGHT,EASILY AROUSABLE.PT RETAINING URINE,BLADDER SCAN AT 2200 REVEALED 487ML.PT STRAIGHT CATHED PER PROTOCOL, 480ML OF BROWN URINE OBTAINED.BLADDER SCAN 6HRS LATER AT 0400 REVEALED 278ML IN BLADDER.PT NOT ABLE TO VOID ON HIS OWN AFTER MULTIPLE ATTEMPTS.PT DENIES THE URGE TO URINATE,DENIES SUPRAPUBIC PAIN.PT IN AFIB WITH FREQUENT PVCS,HR 104-122BPM.SOFT BP.AMIODORONE INFUSING AT 0.5/KG/HR AT 16.7 ML/HR.BILIARY DRAIN PUTTING OUT DARK GREEN/BROWN FOUL SMELLING DRAINAGE.PT DENIES PAIN,DENIES NEEDS AT THIS TIME.WILL GIVE REPORT TO DAYSHIFT NURSE FOR CONTINUITY OF CARE.CALL LIGHT AND PT'S ITEMS WITHIN REACH.BED ALARM ON FOR PT'S SAFETY.
[2025-01-12] MEDS ORDERED: Digoxin 0.25 MG/ML 2ML Amp IV ONE (09:20)
--- NOTE | 2025-01-12 18:01 | NUR ---
SHIFT SUMMARY PATIENT SOMNULENT. WAKES TO VERBAL STIMULI BUT FALLS ASLEEP EASILY DURING CONVERSATION. ORIENTED x2-3, WAKES UP FORGETFUL BUT IS EASILY REORIENTED. BP OCCASIONALLY SOFT, MAP >65. ON RA WITH SPO2 >90%. TELE READING AFIB 120-130s. PATIENT ABLE TO URINATE TODAY, DARK TEA COLOR OUT. BLADDER SCANNING Q6 FOR RETENTION. PATIENT INCONTINENT OF BOWEL TODAY. ATTENDS IN PLACE. NO OTHER SIGNIFICANT CHANGES. WILL REPORT TO DAY SHIFT RN.
[2025-01-12] MEDS ORDERED: Amiodarone HCl 200 MG Tab PO SCH (21:00)
[2025-01-13] VITALS (7 sets, daily range): BP systolic 95–126; BP diastolic 55–82
[2025-01-13 03:51] LABS: BASOPHILS PERCENT AUTO 0 % (0-2); EOSINOPHILS PERCENT AUTO 0 % (0-6); Hematocrit 24.3 % (37.0-53.0); Hemoglobin 7.4 g/dL (13.5-17.5); Mean Corpuscular HGB 22.6 pg (26.0-34.0); Mean Corpuscular HGB Conc 30.5 g/dL (31.5-36.5); Mean Corpuscular Volume 74 fL (80-100); Platelet Count 66 K/mm3 (150-400); RDW Standard Deviation 49.4 fL (35.1-46.3); Red Blood Cell Count 3.28 M/mm3 (4.30-5.90); White Blood Cell Count 4.43 K/mm3 (4.00-11.30)
[2025-01-13 03:54] LABS: IMMATURE GRAN ABSOLUTE AUTO 0.22 K/mm3 (0.00-0.10); IMMATURE GRAN PERCENT AUTO 5 % (0-1); LYMPHOCYTES ABSOLUTE AUTO 0.69 K/mm3 (0.84-5.20); LYMPHOCYTES PERCENT AUTO 16 % (21-46); MONOCYTES ABSOLUTE AUTO 0.38 K/mm3 (0.16-1.47); MONOCYTES PERCENT AUTO 9 % (4-13); NEUTROPHILS ABSOLUTE AUTO 3.14 K/mm3 (1.96-9.15); NEUTROPHILS PERCENT AUTO 71 % (41-73)
[2025-01-13 04:21] LABS: Digoxin (Lanoxin) 0.92 ug/mL (0.80-2.00); Magnesium, Blood 1.7 mg/dL (1.6-2.4)
[2025-01-13 04:22] LABS: Alanine Aminotransfer (ALT/SGP 8 U/L (12-78); Albumin, Blood 1.4 g/dL (3.4-5.0); Albumin/Globulin Ratio 0.4 (0.8-1.8); Alk Phos 92 U/L (50-136); Anion Gap 8 mmol/L (3-11); Aspartate Aminotrans (AST/SGOT 11 U/L (12-37); Bilirubin, Total 2.4 mg/dL (0.1-1.0); Blood Urea Nitrogen 14 mg/dL (8-24); Bun/Creatinine Ratio 20.2 (12.0-20.0); CO2, Blood 24 mmol/L (21-32); Calcium, Blood 7.5 mg/dL (8.5-10.1); Chloride, Blood 107 mmol/L (98-108); Creatinine, Blood 0.69 mg/dL (0.60-1.20); Globulin, Blood 3.2 g/dL (2.2-4.0); Glomerular Filtration Rate 100 (60-); Glucose, Blood 105 mg/dL (70-99); Potassium, Blood 3.8 mmol/L (3.5-5.5); Sodium, Blood 135 mmol/L (136-145); Total Protein, Blood 4.6 g/dL (6.4-8.2)
--- NOTE | 2025-01-13 06:34 | NUR ---
SHIFT SUMMARY PT HAS TOLERATED SHIFT WELL WITH NO CHANGES IN STATUS. PT STARTED NIGHT A&O X 3 AND HAS REMAINED A&O X 2-3 THROUGH SHIFT. PT ONLY LOWERED IN A&O STATUS AFTER NIGHT TIME MEDICATIONS WERE GIVEN, AFTER WHICH PT BECAME DROWSY AND MORE DIFFICULT TO AROUSE. PT IS RESTING COMFORTABLY IN ROOM AT THIS TIME. WILL CONTNUE TO MONITOR UNTIL REPORT PASSED TO DAY SHIFT TEAM.
[2025-01-13] MEDS ORDERED: Digoxin 0.125 MG Tab PO SCH (09:00)
[2025-01-13] MEDS ORDERED: Metoprolol Tartrate 50 MG Tab PO SCH ×2 (09:00→21:00)
--- NOTE | 2025-01-13 11:13 | NUR ---
AM NOTE: PATIENT OPEN EYES TO HIS RN PRESENCE THIS AM. HARD OF HEARING AND SAYING "I'M JUST TIRED" DENIES PAIN. ALERT AND ORIENTED X3. UNABLE TO TELL ME DATE. DENIES NUMBNESS/TINGLING. MOVING ALL EXTREMITIES. VERY WEAK. 2 PERSON ASSIST. TO BSC. ON ROOM AIR SATING ABOVE 95%. DENIES SOB AT REST. SOB WITH EXCERTION. LUNG SOUNDS CLEAR AND DIM IN BASES. OCCASIONAL WEAK COUGH. TELE SHOWING AFIB WITH HR 100-110'S AT REST AND UP TO 140'S WITH ACTIVITY. NO EDEMA NOTED. IV ABX INFUSING. SCD'S IN PLACE. PATIENT REQUESTING BREAK FROM SCD'S THIS AM. BOWEL TONES PRESENT THROUGHOUT. DENIES TENDERNESS. INTERMIT NAUSEA. POOR APPEATITE. CLEAR LIQUID DIET. BILI DRAIN TO RIGHT SIDE DRAINING PERI COLORED FLUID. DRESSING C/D/I. UP TO BSC WITH LOOSE/LIQUID STOOL THIS AM. URINARY RETENTION. BLADDER SCAN COMPLETED SHOWING 303ML. SKIN JAUNDICED WITH SCATTERED BRUISING. BROTHER AND DAUGHTER IN THIS AM AND UPDATED BY THIS RN. CALL LIGHT IN REACH. DENIES NEEDS AT THIS TIME.
--- NOTE | 2025-01-13 14:42 | NUR ---
DR. RAINEY TO BEDSIDE. NO PLANS FOR NEW DRAIN AT THIS TIME. PT/OT ORDERS IN PLACE. PATIENT ADVANCED TO FULL LIQUID DIET. DAUGHTER HUA UPDATED. CALL LIGHT IN REACH.
--- NOTE | 2025-01-13 18:32 | NUR ---
SHIFT SUMMARY: PATIENT REMAINS ALERT AND ORIENTED. IRRITABLE AT TIMES. PHYSICAL THERAPY THIS AFTERNOON. UP TO BSC X1. INCONTINENT VOID IN BED THIS EVENING. BLADDER SCANS DONE THROUGHOUT SHIFT. REMAINS ON ROOM AIR. TELE SHOWING AFIB WITH HR 90-130'S. IV ABX INFUSED. Q2 TURNING. POOR APPEATITE. FULL LIQUID DIET THIS EVENING AND PATIENT TOOK A FEW BITES OF PUDDING AND SOUP. CALL LIGHT IN REACH. DENIES NEEDS.
[2025-01-14 04:33] VITALS: BP 122/86
--- NOTE | 2025-01-14 05:05 | NUR ---
SHIFT SUMMARY PATIENT ALERT AND ORIENTED X3. VERY HARD OF HEARING. HAD NO COMPLAINTS OF PAIN OR SHORTNESS OF BREATH. ON ROOM AIR WITH SPO2 >90%. VITAL SIGNS STABLE. BILIARY DRAIN PATENT AND DRAINING TO GRAVITY. NO ACUTE ISSUES NOTED OVERNIGHT. WILL CONTINUE TO MONITOR. CALL LIGHT WITHIN REACH.
[2025-01-14 08:01] VITALS: BP 127/85
[2025-01-14 11:49] VITALS: BP 116/85
--- NOTE | 2025-01-14 13:11 | NUR ---
Pt sitting in chair, finished lunch and says he is just not feeling well overall. Unable /unwilling to specify the details.
--- NOTE | 2025-01-14 15:26 | NUR ---
PATIENT DESATTING INTO THE 70'S WHEN SLEEPING, PATIENT IS ON RA SATTING >92% WHEN AWAKE. THIS RN ASKED PATIENT IF HE HAS EVER BEEN TOLD THAT HE STOPS BREATHING WHEN HE SLEEPS AND IF HE WEARS A CPAP AT HOME? PATIENT RESPONDED WITH "I HAVE BEEN TOLD THAT BEFORE. I TRIED A CPAP BUT I CANT WEAR IT BECAUSE I AM VERY CLAUSTROPHOBIC". PATIENT MAY NEED A 1-2LPM WHEN SLEEPING. PATIENT WOULD BENEFIT FROM A SLEEP STUDY.
[2025-01-14 16:10] VITALS: BP 116/64
--- NOTE | 2025-01-14 16:15 | NUR ---
ROUNDED ON PATIENT, UNAVALIABLE AT THIS TIME. DISCUSSED CASE WITH BEDSIDE RN. SHE REPORTED THAT HE IS NOT PARTICIPATING IN CARE, IF GIVEN AN OPTION HE WILL REFUSE. CALLED PATIENTS DAUGHTER EYAD, SPOKE BREIFLY WITH HER SHE WAS BUSY AT THIS TIME, SHE STATED THAT SHE WOULD RETURN MY CALL.
--- NOTE | 2025-01-14 18:39 | NUR ---
[facility] PATENT IS [place] AND A&OX3 WITH SLIGHT CONFUSION. PATIENT DOES NOT APPEAR MOTIVATED TODAY, WAS UP [facility] PHYSICAL THERAPY TODAY AND WALKED 5 FEET FROM BED TO CHAIR. ATTEMPTED TO GET PATIENT TO TALK WALK AFTER LUNCH BUT PATENT REFUSED. PATIENT REMAINED IN CHAIR FOR APPROX. AN HOUR AFTER LUNCH BEFORE WANTING TO GET BACK INTO BED. PATIENT ABLE TO STAND FROM CHAIR WITH 1P ASSST, FWW, AND GB; PATIENT WALKED AROUND BED AND GOT INTO BED ON OPPOSITE SIDE OF ROOM. PATIENT REPORTS THAT HE WAS VERY TIRED AFTER WALKING. PATIENTS ORAL INTAKE HAS BEEN POOR TODAY. PATENTS DAUGHTER IN TO VISIT, GRANDSON AND GIRLFRIEND WELL BROTHER AND SISTER IN-LAW. SISTER IN-LAW ASKED IF PATIENT MIGHT BE ABLE TO HAVE AN APPITITE STIMULANT TO INCREASE HIS ORAL INTAKE. SISTER IN-LA[place] VOICED CONCERN FOR PATIENT TO GO HOME D/T HIS INCREASED NEED FOR CARE AND DAUGHTER WORKS DURING THE DAY AND IS NOT HOME TIL AFTER 1700 AND PATIENT IS HOME ALONE DURING MOST OF THE DAY. PATIENT TODAY HAS BEEN ABLE TO AY THAT HE NEEDED TO URINATE AND USE THE URINAL BUT HAS BEEN INCONTINENT OF BOWEL MOVEMENTS WITHOUT KNOWING THAT HE HAD WENT. PATIENT UNABLE TO ANSWER QUESTION TODAY TO WHAT HE NEEDS HELP WITH AT HOME AND JUST REPEATED THAT HE IS "DOING BETTER NOW THAN HE WAS WHEN HE CAME IN". 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 PATIENT ENJOYS SPORTS AND IS CURRENTLY IN BED WATCHING TV. BED IS LOCKED IN THE LOWEST POSITION WITH CALL LIGHT IN REACH. REPORT TO BE GIVEN TO SITE SAFETY COORDINATOR RN.
[2025-01-14 20:35] VITALS: BP 142/91
[2025-01-15 00:13] VITALS: BP 128/78
[2025-01-15 04:13] VITALS: BP 131/72
--- NOTE | 2025-01-15 06:31 | NUR ---
SHIFT SUMMARY PATIENT ALERT AND ORIENTED X3. HAD NO COMPLAINTS OF PAIN OR SHORTNESS OF BREATH. ON ROOM AIR WITH SPO2 >90%. VITAL SIGNS STABLE. PATIENT REQUIRED BEING STRAIGHT CATHED THIS MORNING. WILL CONTINUE TO MONITOR. CALL LIGHT WITHIN REACH.
[2025-01-15 07:33] VITALS: BP 128/74
[2025-01-15] MEDS ORDERED: Metoprolol Tartrate 50 MG Tab PO SCH (09:00)
--- NOTE | 2025-01-15 11:26 | NUR ---
Spiritual care visit conducted. Patient is lying in bed and resting. He easily awakens to the sound of his name but only manages to stay awake for short intervals at a time He would fall asleep during his own sentence. He was able to pull up the name of his dtr that lives out of state but it took a lot of work and time for him to get there (Qing and she lives in [place]). When I asked him if he wants to continue with therapy he answered, "My dogs are more cat dogs than they are dog dogs." But when I asked him if he had some fight left in him for his medical battles, he said, "Yes, I still have some fight left." He welcomed prayer at my last visit but today he refused prayer stating that he was just too exhausted. I normalized his feelings and fears, encouraged helpful attitudes and provided therapeutic listening and gentle student success counselor. The patient responded well and showed signs of an elevated mood.
[2025-01-15 11:30] VITALS: BP 121/83
[2025-01-15 13:52] LABS: Hematocrit 30.5 % (37.0-53.0); Hemoglobin 9.2 g/dL (13.5-17.5); Mean Corpuscular HGB 22.4 pg (26.0-34.0); Mean Corpuscular HGB Conc 30.2 g/dL (31.5-36.5); Mean Corpuscular Volume 74 fL (80-100); Platelet Count 91 K/mm3 (150-400); RDW Coefficient Variation 19.8 % (11.7-14.2); RDW Standard Deviation 51.1 fL (35.1-46.3); White Blood Cell Count 6.06 K/mm3 (4.00-11.30)
[2025-01-15 14:43] LABS: Alanine Aminotransfer (ALT/SGP 10 U/L (12-78); Albumin, Blood 1.8 g/dL (3.4-5.0); Albumin/Globulin Ratio 0.5 (0.8-1.8); Alk Phos 111 U/L (50-136); Anion Gap 9 mmol/L (3-11); Aspartate Aminotrans (AST/SGOT 14 U/L (12-37); Bilirubin, Total 2.5 mg/dL (0.1-1.0); Blood Urea Nitrogen 15 mg/dL (8-24); Bun/Creatinine Ratio 30.7 (12.0-20.0); CO2, Blood 24 mmol/L (21-32); Calcium, Blood 8.4 mg/dL (8.5-10.1); Chloride, Blood 107 mmol/L (98-108); Creatinine, Blood 0.49 mg/dL (0.60-1.20); Digoxin (Lanoxin) 0.96 ug/mL (0.80-2.00); Globulin, Blood 3.7 g/dL (2.2-4.0); Glomerular Filtration Rate 110 (60-); Glucose, Blood 98 mg/dL (70-99); Potassium, Blood 4.2 mmol/L (3.5-5.5); Sodium, Blood 136 mmol/L (136-145); Total Protein, Blood 5.5 g/dL (6.4-8.2)
--- NOTE | 2025-01-15 15:26 | NUR ---
SPOKE WITH DAUGHTER ON THE PHONE. DISCUSSED HOW BRAULIO HAD BEEN PRIOR TO ADMISSION, SHE EXPRESSED THAT HE WAS A/O, INDEPENDENT. DISCUSSED CODE STATUS. DAUGHTER REPORTED THAT HE IS A FULLS CODE. SHE EXPRESSED THAT SHE HAS NOT SEEN HIM IMPROVE MUCH SINCE HE CAME TO THE HOSPITAL, HIS MENTATION AND AMOUNT HE HAS BEEN SLEEPING IS STILL NOT BASELINE. DISCUSSED THIS CONVERSATION WITH PROVIDER.
[2025-01-15 15:54] VITALS: BP 120/70
--- NOTE | 2025-01-15 17:28 | NUR ---
SHIFT SUMMARY. PATIENTS HEART RATE HAS BEEN IN THE 90-100'S TODAY; PATIENTS DOSE OF METOPROLOL CHANGED THIS MORNING TO 150MG. PATIENT NOT WANTING TO WORK WITH PT OR OT, PATIENT REPORTS WEAKNESS TODAY. PATIENT UP FOR BREAKFAST AND LUNCH-PATIENT HAD A DIFFICULT TIME STANDING AND TAKING TWO STEPS TO THE BED. PATIENTS ORAL INTAKE HAS BEEN VERY POOR TODAY, DISCUSSED WITH PALLIATIVE CARE FOR POSSIBLE APPETITE STIMULANT FOR PATIENT; NALLELY SPOKE WITH CASSIDYITAN, DIETITAN CAME IN TO SEE PATIENT BUT WAS NOT ABLE TO GET FAR WITH THE PATIENT D/T HIM NOT CONVERSING WITH DIETITAN. PATIENT ATE 1 1/2 CHEDDAR CHEESE SQUARES AND A CRACKER TODAY. PATIENT REPORTS TO OTHER MEMBERS OF THE HEALTH CARE TEAM OF A DESIRE TO DO CHEMO THERPY AND GET BETTER BUT LACKS MOTIVATION AT THIS TIME TO PARTICIPATE IN PT/OT. PATIENTS DAUGHTER CAME IN TO SEE PATIENT FOR A SHORT PERIOD OF TIME, SHE PLANS TO COME IN TO SEE PATIENT DURING HER LUNCH TOMORROW. PATIENT HAS BEEN TIRED AND RESTING OFF AND ON TODAY; PATIENT HAVING BOUGHTS OF BEING "SILLY" LATER THIS AFTERNOON. BED IS LOCKED IN THE LOWEST POSITION WITH CALL LIGHT IN REACH. CARE IS ONGOING.
[2025-01-15 20:15] VITALS: BP 131/77
[2025-01-16] VITALS (7 sets, daily range): BP systolic 114–128; BP diastolic 63–82
--- NOTE | 2025-01-16 06:37 | NUR ---
SHIFT SUMMARY PATIENT ALERT AND ORIENTED X3. HAD NO COMPLAINTS OF PAIN OR SHORTNESS OF BREATH. ON ROOM AIR WITH SPO2 >90%. PATIENT DID HAVE OCCASIONAL EPISODES WHERE HE DESATED FOR A FEW SECONDS AND REBOUNDED TO THE 90'S, PATIENT NOTED TO HAVE A HISTORY OF SLEEP APNEA. VITAL SIGNS STABLE. WILL CONTINUE TO MONITOR. CALL LIGHT WITHIN REACH.
--- NOTE | 2025-01-16 08:30 | NUR ---
AM ASSESSMENT: Pt sitting up in chair finishing breakfast. Ate very little this am. States that he isn't hungry and that he felt like he ate a lot. Bili drain to R upper quad draining very dark green liquid. States some tenderness with palpation to RUQ. BT positive. HR reg. LS clear. Pulses palp. VSS. Pt is very weak, AGUA CALIENTE and slow to respond to questions but A/O x4. Call light in reach. Will continue to monitor.
--- NOTE | 2025-01-16 12:51 | NUR ---
Spiritual care visit conducted. The patient is a bit more alert this morning. He emphasises how tired he is and that he "just getting by." I asked him what is most important to him in this season. He stated, "my dtr's and my dogs." I asked him, "How motived are you to proceed with treatments and therapies?" He said, "I just want to go home and spend time with my dtrs and dogs and sleep." I then inquired if he wants to continue on his current path with therapy and he said, "No, I just want to spend time with my daughters and my dogs." He is [place] and maybe something is lost in what he hears but this was what the conversation sounded like and what I communicated to his RN Donovan. I will continue to reman available to the patient and the family.
--- NOTE | 2025-01-16 13:24 | NUR ---
UPDATE: Pt up to chair after getting up to comode. Pt has liquid BM and void. VSS. Pt did not eat any lunch and refused to drink vanilla, chocolate or apple ensure. Pt requesting drinks from [employer]. Called pt daughter Floresita who will bring in some protien drinks from [employer]. No other changes at this time. Will continue to monitor. Call light in reach.
--- NOTE | 2025-01-16 17:16 | NUR ---
PALLIATIVE CARE VISIT: MET WITH DAUGHTER EYAD AND PT IN ROOM. DAUGHTER LUIS WAS PRESENT WITH VISIT VIA VIDEO CONFERENCE ON EYAD'S CELL PHONE. PT BRAULIO AGREEABLE TO MEETING. BRAULIO IS VERY [place]. HE HAD DIFFICULTY FOLLOWING CONVERSATION. SPOKE TO DAUGHTER AND EYAD ABOUT PERCEPTION OF CANCER TREATMENT. LUIS STATED DR. PAZ HAD INDICATED THE CANCER HER DAD HAS IS LIFELONG BUT IT COULD POSSIBLY GO INTO REMISSION OR HER DAD COULD LIVE A LONG TIME WITH TREATMENT. BRAULIO WAS ON A IMMUNOTHERAPY TREATMENT WHICH WAS INEFFECTIVE AND HE RECENTLY STARTED CHEMO AND HAS HAD 2 SESSIONS. THE PLAN WAS TO DO A REPEAT CT TO SEE IF CHEMO WAS MAKING POSITIVE CHANGES AFTER 3-4 CHEMO TREATMENTS. THEIR PRIMARY CONCERNS AT THIS TIME IS THEIR DADS MENTATION HAS SIGNIFICANTLY DECLINED SINCE ADMISSION TO HOSPITAL. THEY ARE WONDERING IF THERE IS A SOURCE CAUSING THE CONFUSION. DISCUSSED WITH THEM BRAULIO HAD INDICATED HE WANTED TO GO HOME AND JUST BE ABLE TO HANG OUT WITH THEM. ATTEMPTED TO GLEEN FROM PT WHAT HE MEANT BY THAT BUT PT DID NOT SEEM TO BE ABLE TO UNDERSTAND QUESTION. DAUGHTERS AGREED TO TALK TO THEIR DAD ALONE TO SEE IF HE WANTS TO CONTINUE CHEMO TREATMENT. UPDATED DR. HAAS AND PRIMARY RN WITH CONVERSATION. DR. HAAS STATED HE WOULD CALL DR. PAZ TOMORROW TO FIND OUT PROGNOSIS. CALLED DAUGHTER EYAD AND INFORMED HER DR. CASTANEDA PLANS.
--- NOTE | 2025-01-16 17:53 | NUR ---
SHIFT SUMMARY: Pt back to bed after being up in the chair for about 30min. Pt is very weak and seems more lethargic this afternoon than this am. Pt also seems more forgetful and disoriented. Pt continues to refuse to eat or drink. Palliative care came in this afternoon to talk to daughter a patient about goals of care and failure to thrive. NO decisions made. Plan to discuss further tomorrow. Call light in reach, will report to night RN.
[2025-01-16 21:18] LABS: Free Thyroxine 0.93 ng/dL (0.70-1.60)
[2025-01-16 21:22] LABS: Triiodothyronine, Free <0.50 pg/mL (2.18-3.98)
[2025-01-17 04:29] VITALS: BP 116/69
[2025-01-17 07:47] VITALS: BP 117/62
[2025-01-17] MEDS ORDERED: Liothyronine Sodium 5 MCG Tab PO SCH (08:00)
[2025-01-17] MEDS ORDERED: MethylPREDNISolone Sod Succ 125 MG Vial IV ONE (11:15)
[2025-01-17 11:57] VITALS: BP 108/75
[2025-01-17 16:35] VITALS: BP 128/95
--- NOTE | 2025-01-17 18:19 | NUR ---
PT SUMMARY; PT REMAINS UNMOTIVATED FOR THE SHIFT. CONTINUES TO HAVE POOR APPETITEONLY DRINKING PROTEN SHAKES AND TAKING SMALL BITES OF MEAL. PT ALSO HAS SOME CONFUSION BUT IS ABLE TO ANSWER QUESTIONS APPROPRIATELY. PT HAS 2 BOUTS OF LOOSE BMS WHITE YELLOW IN COLOR AND INCONTINENT VOIDS HAD 2 FULL BED CHANGE FOR THE SHIFT. RIGHT BILLIARY DRAIN >500MLS FOR THE SHIFT DRAK YELLOW IN COLOR. PT WAS UP IN THE CHAIR FOR DINNER AND DAUGHTER AT THE BEDSIDE. ABLE TO HAVE THE DISCUSSION WITH DR HAAS AND DR PAZ. NO OTHER ACUTE CHANGE FOR THE SHIFT, PALLIATIVE CARE NURSE WAS GIVEN UPDATE REGARDING PT STATUS, WILL REPORT TO ONCOMING RN
[2025-01-17 20:10] VITALS: BP 133/79
[2025-01-18 00:01] VITALS: BP 118/65
[2025-01-18 04:51] VITALS: BP 121/69
--- NOTE | 2025-01-18 05:41 | NUR ---
SHIFT SUMMARY - ASSUMED CARE AT 1900. PT ALERT AND ORIENTED TO SELF, DAUGHTER, AND PLACE. DENIES PAIN. COOPERATIVE WITH CARE, FLAT AFFECT. 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 HE IS ANXIOUS TO GO HOME. PT DENIED CHEST PAIN/PRESSURE/SOB. VSS. ON ROOM AIR AND SATTING ABOVE 90%. SWALLOWING PILLS WHOLE WITH WATER. CAREGIVER TO BRING COMPLETE MEDLIST TOMORROW WITH PRESCRIBED FREQUENCY FOR MEDICATIONS. PT HAD ONE BM TODAY, IT WAS WATERY AND BROWN. PT ABLE TO AMBULATE TO BEDSIDE COMMODE WITH FWW AND GAITBELT. NO ACUTE EVENTS THIS SHIFT.
[2025-01-18] MEDS ORDERED: Levothyroxine Sodium 0.075 MG Tab PO SCH (06:00)
[2025-01-18 07:54] VITALS: BP 129/73
[2025-01-18 08:08] LABS: Hematocrit 23.6 % (37.0-53.0); Hemoglobin 7.1 g/dL (13.5-17.5); Mean Corpuscular HGB 22.5 pg (26.0-34.0); Mean Corpuscular HGB Conc 30.1 g/dL (31.5-36.5); Mean Corpuscular Volume 75 fL (80-100); Platelet Count 68 K/mm3 (150-400); RDW Coefficient Variation 19.8 % (11.7-14.2); RDW Standard Deviation 52.2 fL (35.1-46.3); Red Blood Cell Count 3.16 M/mm3 (4.30-5.90); White Blood Cell Count 4.14 K/mm3 (4.00-11.30)
[2025-01-18 08:18] LABS: Bun/Creatinine Ratio 41.8 (12.0-20.0); Calcium, Blood 7.9 mg/dL (8.5-10.1); Creatinine, Blood 0.6 mg/dL (0.60-1.20); Potassium, Blood 3.8 mmol/L (3.5-5.5)
[2025-01-18 15:49] VITALS: BP 115/78
--- NOTE | 2025-01-18 18:09 | NUR ---
PT SUMMARY; NO ACUTE CHANGE FOR THE SHIFT, VITALS HAS BEEN STABLE. PT HAS BEEN PLEASANT AND COOPERATIVE FOR THE SHIFT. ASSISTED UP IN THE RECLINER FOR BREAKFAST, SAT ON THE SIDE OF THE BED FOR LUNCH AND DINNER. PT STILL HAS POOR APPETITE DAUGHTER CAME BY AND BROUGHT PT SOME DINNER, PT WAS ENCOURAGED TO EAT SOME, PT STILL HASNT TOUCHED IT. PT CONTINUES TO HAVE WHITE YELLOW ODOROUS BM FOR THE SHIFT ALEAST 4 TIMES TODAY. USES BSC AND URINAL FOR TOILETING SBA FOR TRANSFERS. RIGHT BILIARY DRAIN EMPTIED A COUPLE TIMES FOR THE SHIFT. TRANSITIONED TO MEDICAL STATUS NO TELE. NO OTHER ISSUES REPORTED CALL LIGHTS IN REACH WILL REPORT TO ONCOMING SHIFT
[2025-01-18 20:10] VITALS: BP 119/74
[2025-01-19 01:17] VITALS: BP 101/60
--- NOTE | 2025-01-19 01:25 | NUR ---
TRANSFER TO MEDICAL FLOOR ROOM 312 AT 0120, BEDSIDE REPORT GIVEN TO EAMON VENTURA. PT ALERT AND ORIENTED TO SELF, PERSON, AND PLACE. SATTING ABOVE 90% ON RA. TRANSFERRED TO MEDICAL FLOOR VIA HOSPITAL BED. PT HAD INCONTINENT STOOL JUST PRIOR TO DEPARTURE, CLEAN ATTENDS NOW IN PLACE. BILIARY DRAIN IN PLACE AND DRAINING TO GRAVITY, DRAINAGE BROWN AND THIN.
[2025-01-19 04:47] LABS: Hematocrit 25.7 % (37.0-53.0); Hemoglobin 7.5 g/dL (13.5-17.5); Mean Corpuscular HGB 22.1 pg (26.0-34.0); Mean Corpuscular HGB Conc 29.2 g/dL (31.5-36.5); Mean Corpuscular Volume 76 fL (80-100); NRBC ABSOLUTE 0.02 K/mm3 (0.00-0.02); NRBC Auto 0.7 /100 WBC (0.0-0.2); Platelet Count 66 K/mm3 (150-400); White Blood Cell Count 2.85 K/mm3 (4.00-11.30)
[2025-01-19 05:04] LABS: Bun/Creatinine Ratio 40.8 (12.0-20.0); Calcium, Blood 7.6 mg/dL (8.5-10.1); Creatinine, Blood 0.52 mg/dL (0.60-1.20); Potassium, Blood 3.6 mmol/L (3.5-5.5)
--- NOTE | 2025-01-19 05:46 | NUR ---
NOC SUMMARY- PT ARRIVED TO ROOM IN NO DISTRESS. PT DRAIN IS DRAINING TO GRAVITY, THIN BROWN YELLOW BILE. PT HAS BEEN RESTING COMFORTABLY. CALL LIGHT IN REACH AND BED ALARM ON FOR SAFETY.
[2025-01-19 07:48] VITALS: BP 119/76
[2025-01-19 16:16] VITALS: BP 113/72
[2025-01-19] MEDS ORDERED: Nystatin 100,000 Unit/ML Susp 5 ML UDC MT SCH (17:00)
--- NOTE | 2025-01-19 18:38 | NUR ---
PT ORIENTED TO PLACE AND PERSON ONLY, CONFUSED WITH SLOW SPEECH. VSS, NON TELE, RA, 1-PA TO BSC WHEN CONTINENT. 2 LG LOOSE LIGHT BAKER BM THIS SHIFT. BILIARY DRAIN CONTINUES TO DRAIN BROWN/YELLOW FLUID. PT COMPLAINED OF SORE MOUTH TO THIS RN, CONTACTED AND NEW ORDER FOR NYSTATIN. POOR ORAL INTAKE, DROWSY THROUGHOUT DAY.
[2025-01-19 19:36] VITALS: BP 114/71
--- NOTE | 2025-01-20 03:22 | NUR ---
SHIFT SUMMARY NO ACUTE EVENTS DURING THIS SHIFT. PT IS A/O X2, SLOW SPEECH. PT IS ABLE TO MAKE HIS NEEDS KNOWN AND COOPERATIVE WITH CARE. MEDICATIONS AT HS ADMINISTERED WHOLE IN APPLE SAUCE. PPT TOLERATED WELL. PT DENIES PAIN AND DISCOMFORT. BILIARY DRAIN OUTPUT 500MLS/DARK BROWN IN COLOR. PT HAS REMAINED IN BED T/O THIS SHIFT. ENCOURAGED REPOSITIONING Q2HRS. INCONTINENT, ATTENDS IN PLACE. POOR INTAKE AT HS, 0% OF DINNER. ENCOURAGING PO INTAKE. BED AT THE LOWEST POSITION, CALL LIGHT W/I REACH.
[2025-01-20 04:18] VITALS: BP 101/64
[2025-01-20 05:38] LABS: Hematocrit 25.4 % (37.0-53.0); Hemoglobin 7.5 g/dL (13.5-17.5); Mean Corpuscular HGB 22.3 pg (26.0-34.0); Mean Corpuscular HGB Conc 29.5 g/dL (31.5-36.5); Mean Corpuscular Volume 75 fL (80-100); Platelet Count 59 K/mm3 (150-400); RDW Coefficient Variation 19.9 % (11.7-14.2); RDW Standard Deviation 52.9 fL (35.1-46.3); Red Blood Cell Count 3.37 M/mm3 (4.30-5.90)
[2025-01-20 07:28] VITALS: BP 108/70
[2025-01-20] MEDS ORDERED: Megestrol Acetate Susp 400MG/10ML UDC PO SCH (10:30)
[2025-01-20 15:18] VITALS: BP 105/70
--- NOTE | 2025-01-20 16:48 | NUR ---
SHIFT SUMMARY PT AOX3/4, COOPERATIVE, ABLE TO MAKE NEEDS KNOWN. PT IS PLATINUM, 1 PERSON ASSIST TO RECLINER FOR MEALS. HAS VERY POOR ORAL INTAKE, FAILURE TO THRIVE SITUATION. FAMILY POSSIBLY PLACING PT IN AIRPLANE INSPECTOR CARE AFTER DISCHARGE. BED IN LOWEST POSITION, CALL LIGHT WITHIN REACH.
[2025-01-20 19:11] VITALS: BP 123/78
[2025-01-21 04:28] VITALS: BP 103/58
[2025-01-21 05:27] LABS: Hematocrit 25.3 % (37.0-53.0); Hemoglobin 7.7 g/dL (13.5-17.5); Mean Corpuscular HGB 22.9 pg (26.0-34.0); Mean Corpuscular HGB Conc 30.4 g/dL (31.5-36.5); Mean Corpuscular Volume 75 fL (80-100); Platelet Count 51 K/mm3 (150-400); RDW Coefficient Variation 19.9 % (11.7-14.2); RDW Standard Deviation 51.7 fL (35.1-46.3); Red Blood Cell Count 3.36 M/mm3 (4.30-5.90); White Blood Cell Count 3.92 K/mm3 (4.00-11.30)
--- NOTE | 2025-01-21 05:53 | NUR ---
PT ALERT A&0X2, KIPNUK, HAD LIQUID BM. PT VERY WEAK AND HAVING DIFFICULTY WITH AMBULATING AND STANDING. PPP, HRR TRACED BLE EDEMA. BTX4, ABD SNT. MUCUS MEMBRANES DRY PT RELUCTANT TO DRINK MUCH LIQUIDS. ONLY EATING BITES AND TAKING SIPS. PT HAS HAD LIQUID INCONTINENT MASTER THIS SHIFT. DRESSING CHANGED TO COCCYX, NO DRAINAGE NOTED.
[2025-01-21 07:26] VITALS: BP 111/75
--- NOTE | 2025-01-21 16:58 | NUR ---
DISCHARGE/TRANSFER PT AOX2, COOPERATIVE, ABLE TO MAKE NEEDS KNOWN. POOR PO INTAKE. DEJA HAS BEEN BEDSIDE FOR LAST COUPLE HOURS. TRANSPORT SUPPOSED TO ARRIVE AT 1530, PT JUST NOW LEFT. POWERGLIDE DC'D BY THIS RN, PERIPHERAL IV DC'D BY MECHANICAL ENGINEERING TECHNICIAN. DC PAPERS WENT WITH PT. GAVE REPORT TO [facility] NURSE, "AMANDA" RECEIEVED REPORT.
== END 2025-01-21 16:58 | DRG 871 ==
LOC: ER 12:35 → PCU 18:15 → MEDS 18:15 → PCU 20:25 → MEDS 01-19 01:14
PROVIDERS: Emergency Medicine; Internal Medicine; Nurse Practitioner Acute Care; ADMIT Internal Medicine
DX: A41.9 Sepsis, unspecified organism (principal); E43 Unspecified severe protein-calorie malnutrition; K83.1 Obstruction of bile duct; G92.8 Other toxic encephalopathy; E87.1 Hypo-osmolality and hyponatremia; N17.9 Acute kidney failure, unspecified; C88.40 Extranodal marginal zone B-cell lymphoma of mucosa-associated lymphoid tissue [MALT-lymphoma] not having achieved remission; I48.19 Other persistent atrial fibrillation; K81.0 Acute cholecystitis; B37.0 Candidal stomatitis; R65.20 Severe sepsis without septic shock; F43.10 Post-traumatic stress disorder, unspecified; I10 Essential (primary) hypertension; F32.A Depression, unspecified; F41.9 Anxiety disorder, unspecified; E03.9 Hypothyroidism, unspecified; Z96.652 Presence of left artificial knee joint; E87.6 Hypokalemia; D50.9 Iron deficiency anemia, unspecified; G47.33 Obstructive sleep apnea (adult) (pediatric); Z96.612 Presence of left artificial shoulder joint; M25.512 Pain in left shoulder; R62.7 Adult failure to thrive; R94.6 Abnormal results of thyroid function studies; D69.6 Thrombocytopenia, unspecified; Z87.19 Personal history of other diseases of the digestive system; Z98.890 Other specified postprocedural states; Z90.49 Acquired absence of other specified parts of digestive tract; Z88.8 Allergy status to other drugs, medicaments and biological substances; Z79.899 Other long term (current) drug therapy; Z79.890 Hormone replacement therapy; Z79.51 Long term (current) use of inhaled steroids; Z87.891 Personal history of nicotine dependence; Z51.12 Encounter for antineoplastic immunotherapy; Z51.11 Encounter for antineoplastic chemotherapy; Z45.2 Encounter for adjustment and management of vascular access device; Z86.0101 Personal history of adenomatous and serrated colon polyps; Z95.828 Presence of other vascular implants and grafts
CPT/HCPCS: 36415; 51701; 70551; 71045; 74177; 78226; 80048; 80053; 80162; 81001; 82140; 82728; 82947; 83540; 83550; 83605; 83735; 84100; 84145; 84439; 84443; 84481; 85014; 85018; 85025; 85027; 86850; 86900; 86901; 87040; 87086; 93005; 93010; 93306; 94760; 94762; 96365-59; 96367; 96375; 97110; 97116; 97162; 97165; 97530; 99285-25; A9270; A9537; C1751; J0282; J0692; J1160; J1171; J1642; J1750; J1885; J2405; J2543; J2919; J3370; J3475; J3480; J7030; J7050; J7060; J7120; Q9967

== ENCOUNTER 2025-02-09 15:55 | Inpatient (IN) | payer OTHER ==
[~2025-02-09] VITALS: Ht 193 cm; Wt 97.0 kg
[2025-02-09] MEDS ORDERED: CefTRIAXone Sodium 2,000 MG in NS 100 ML IV ONE (16:15)
[2025-02-09] MEDS ORDERED: NS 1,000 ML IV SCH (16:15)
[2025-02-09] MEDS ORDERED: NS IV ONE (16:15)
[2025-02-09] MEDS ORDERED: VANCOMYCIN HCL IV ONE (16:15)
[2025-02-09] MEDS ORDERED: Vancomycin HCL 1,750 MG in NS 500 ML IV ONE (16:25)
[2025-02-09 16:31] LABS: BASOPHILS PERCENT AUTO 0 % (0-2); EOSINOPHILS ABSOLUTE AUTO 0.01 K/mm3 (0.00-0.68); EOSINOPHILS PERCENT AUTO 0 % (0-6); Hematocrit 27.7 % (37.0-53.0); Hemoglobin 8.7 g/dL (13.5-17.5); IMMATURE GRAN ABSOLUTE AUTO 0.06 K/mm3 (0.00-0.10); IMMATURE GRAN PERCENT AUTO 2 % (0-1); LYMPHOCYTES ABSOLUTE AUTO 1.77 K/mm3 (0.84-5.20); LYMPHOCYTES PERCENT AUTO 47 % (21-46); MONOCYTES ABSOLUTE AUTO 0.85 K/mm3 (0.16-1.47); MONOCYTES PERCENT AUTO 22 % (4-13); Mean Corpuscular HGB 24.6 pg (26.0-34.0); Mean Corpuscular HGB Conc 31.4 g/dL (31.5-36.5); Mean Corpuscular Volume 79 fL (80-100); NEUTROPHILS ABSOLUTE AUTO 1.12 K/mm3 (1.96-9.15); NEUTROPHILS PERCENT AUTO 29 % (41-73); Platelet Count 73 K/mm3 (150-400); RDW Coefficient Variation 26.7 % (11.7-14.2); RDW Standard Deviation 73.5 fL (35.1-46.3); Red Blood Cell Count 3.53 M/mm3 (4.30-5.90); White Blood Cell Count 3.81 K/mm3 (4.00-11.30)
[2025-02-09 16:47] LABS: Albumin, Blood 1.9 g/dL (3.4-5.0); Albumin/Globulin Ratio 0.7 (0.8-1.8); Bilirubin, Indirect 0.9 mg/dL (0.1-0.7); Bilirubin, Total 1.9 mg/dL (0.1-1.0); Bun/Creatinine Ratio 44.3 (12.0-20.0); Creatinine, Blood 0.93 mg/dL (0.60-1.20); Globulin, Blood 2.8 g/dL (2.2-4.0); Magnesium, Blood 1.8 mg/dL (1.6-2.4); Phosphorus, Blood 4.8 mg/dL (2.5-4.9); Potassium, Blood 3.8 mmol/L (3.5-5.5); Total Protein, Blood 4.7 g/dL (6.4-8.2)
[2025-02-09 17:27] LABS: International Normalized Ratio 2.21; Prothrombin Time Results 22.3 Sec (9.7-11.5)
[2025-02-09 17:33] LABS: Source, Urine Straight Cath
[2025-02-09 17:55] LABS: Appearance, Urine Hazy (Clear); Blood, Urine 1+ (Neg); Color, Urine Amber (P-Yellow); Glucose Qualitative, Urine Neg (Neg); Ketones, Urine 1+ (Neg); Leukocyte Esterase, Urine 1+ (Neg); Nitrite, Urine Neg (Neg); Protein, Urine 2+ (Neg); Specific Gravity, Urine 1.025 (1.003-1.022); Urobilinogen, Urine 2+ (Normal)
[2025-02-09 18:07] LABS: Bilirubin, Urine 2+ (Neg)
[2025-02-09 18:11] LABS: Bacteria Many /hpf; Mucus Heavy (0-Heavy); Red Blood Cells, Urine 0-2 /hpf (0-2); Squamous Epithelial Cells Rare /hpf (Few)
[2025-02-09 18:12] LABS: Amorphous Mod (0-Heavy)
[2025-02-09] MEDS ORDERED: Diltiazem HCl 5 MG / ML 5ML Vial IV ONE (18:25)
[2025-02-09] MEDS ORDERED: dilTIAZem HCL 125 MG in Dextrose 5% 100 ML IV SCH ×2 (18:25→18:35)
[2025-02-09] MEDS ORDERED: Digoxin 0.25 MG/ML 2ML Amp IV ONE (21:35)
[2025-02-09] MEDS ORDERED: NS 250 ML IV ONE (22:40)
[2025-02-09] MEDS ORDERED: Azithromycin 500 MG in NS 250 ML IV SCH (23:59)
[2025-02-10] VITALS (29 sets, daily range): BP systolic 88–138; BP diastolic 59–95
[2025-02-10] MEDS ORDERED: NS 1,000 ML IV SCH ×3 (01:45→16:15)
[2025-02-10] MEDS ORDERED: Albumin (Human) 25gm/100ml 100 ML IV ONE (02:05)
[2025-02-10] MEDS ORDERED: Ipratropium/Albuterol SulF 2.5-0.5MG/3 ML Amp INH SCH (04:00)
[2025-02-10] MEDS ORDERED: Albuterol 2.5 MG/3 ML VIAL INH PRN (04:05)
[2025-02-10] MEDS ORDERED: Digoxin 0.25 MG/ML 2ML Amp IV ONE ×2 (04:30→21:25)
--- NOTE | 2025-02-10 04:31 | NUR ---
PATIENT'S CARDIZEM HAS BEEN OFF SINCE 329. HEART RATES UNDER 110. PATIENT APPEARS COMFORTABLE. SEE VSS CHARTING
--- NOTE | 2025-02-10 05:47 | NUR ---
69 Y/O MALE ADMITTED TO ROOM PCU 17 FROM ER. PATIENT COMES IN WITH AFIB, RVR AND LOW BLOOD PRESSURES, POOR APPETITE. RESIDING AT [facility] FOR REHAB SINCE DISCHARGE FROM HOSPITAL 3 WEEKS AGO FOR SEPSIS RELATED TO GALLBLADDER ISSUES. PATIENT HAS A BILLARY DRAIN IN PLACE WHICH WAS LEAKING WHEN PATIENT ARRIVED TO FLOOR FROM ED. APPEARS THE STITCH THAT WAS HOLDING THE DRAIN IN PLACE WAS LOOSE. CT OF ABD WAS DONE. PATIENT IS ONLY ORIENTATED TO HIMSELF. DOES NOT UNDERSTAND NEED FOR TREATMENT. VERY WHITE EARTH. CARDIZEM DRIP WAS INFUSING WHEN PATIENT ARRIVED TO FLOOR BUT WAS TURNED OFF AT AROUND 0330. PENN HAS A VERY DARK SHIRA APPEARING URINE. PENN WAS PLACED IN ER. FOLLOWS COMMANDS. BED ALARM ON. CONTINUE CARE PATIENT IS POSITIVE FOR UTI.
[2025-02-10 06:38] LABS: BASOPHILS PERCENT AUTO 0 % (0-2); EOSINOPHILS PERCENT AUTO 0 % (0-6); Hematocrit 26.6 % (37.0-53.0); Hemoglobin 8.2 g/dL (13.5-17.5); IMMATURE GRAN ABSOLUTE AUTO 0.05 K/mm3 (0.00-0.10); IMMATURE GRAN PERCENT AUTO 2 % (0-1); LYMPHOCYTES ABSOLUTE AUTO 1.13 K/mm3 (0.84-5.20); LYMPHOCYTES PERCENT AUTO 37 % (21-46); MONOCYTES ABSOLUTE AUTO 0.68 K/mm3 (0.16-1.47); MONOCYTES PERCENT AUTO 22 % (4-13); Mean Corpuscular HGB 24.9 pg (26.0-34.0); Mean Corpuscular HGB Conc 30.8 g/dL (31.5-36.5); Mean Corpuscular Volume 81 fL (80-100); NEUTROPHILS ABSOLUTE AUTO 1.18 K/mm3 (1.96-9.15); NEUTROPHILS PERCENT AUTO 39 % (41-73); Platelet Count 70 K/mm3 (150-400); RDW Coefficient Variation 26.7 % (11.7-14.2); RDW Standard Deviation 76.7 fL (35.1-46.3); Red Blood Cell Count 3.29 M/mm3 (4.30-5.90); White Blood Cell Count 3.04 K/mm3 (4.00-11.30)
--- NOTE | 2025-02-10 07:00 | NUR ---
RESTARTED CARDIZEM DRIP AT 10 MG/HR. HEART RATE WENT UP TO THE 130-150'S. IRREGULAR HEART RATE. NOW IS 104 BUT Variable.
[2025-02-10 07:01] LABS: Magnesium, Blood 1.7 mg/dL (1.6-2.4)
[2025-02-10 07:03] LABS: Albumin/Globulin Ratio 0.9 (0.8-1.8); Bilirubin, Total 1.7 mg/dL (0.1-1.0); Bun/Creatinine Ratio 43.7 (12.0-20.0); Calcium, Blood 7.1 mg/dL (8.5-10.1); Creatinine, Blood 0.69 mg/dL (0.60-1.20); Globulin, Blood 2.3 g/dL (2.2-4.0); Potassium, Blood 3.5 mmol/L (3.5-5.5); Total Protein, Blood 4.3 g/dL (6.4-8.2)
[2025-02-10] MEDS ORDERED: Digoxin 0.25 MG/ML 2ML Amp IV SCH (09:00)
--- NOTE | 2025-02-10 10:02 | NUR ---
MD CALLED: THIS RN CALLED MD REGARDING PATIENTS TEMPERATURE RISING AND GOT A VERBAL ORDER FOR MEICATIONS.
[2025-02-10] MEDS ORDERED: Acetaminophen 325 MG TABLET PO PRN (10:05)
[2025-02-10] MEDS ORDERED: NS 500 ML IV ONE (14:00)
--- NOTE | 2025-02-10 14:08 | NUR ---
"Spiritual Care Visit | pt. Request Pt. is awake in bed and welcomed my visit. Pt. displayed evidence of cyndi e confusion so this [facility] cash crop farmer kept the life review brief. Pt.displayed evidence of being comforted by the visit. Prayed for the Pt. Pt. became somnolent during the prayer. Will remain available for the Pt."
[2025-02-10] MEDS ORDERED: ZINC OXIDE/PETROLATUM, YELLOW 1 APPLIC/71 GM PASTE TOP PRN (14:55)
--- NOTE | 2025-02-10 17:30 | NUR ---
SUMMARY- PT AAOX1 TO SELF ONLY. PT ON RA. BEDREST. PT'S HR MUCH MORE CONTROLLED AFTER INITIATION OF AMIODORONE DRIP THIS SHIFT. NO ACUTE EVENTS THIS SHIFT. NO COMPLAINTS OF PAIN.
--- NOTE | 2025-02-10 17:55 | NUR ---
1750- PT STATED IN FRONT OF BOTH DAUGHTERS THAT HE DOES NOT WANT TO GO THROUGH CHEST COPMRESSIONS. PT WISHES TO BE DNR. BOTH DAUGHTERS AGREE. MD KAPADIA CALLED AND NOTIFIED-UPDATED. PK DOWN. THIS RN TO CHANGE CODE STATUS TO DNR.
[2025-02-10] MEDS ORDERED: CefTRIAXone Sodium 1,000 MG in NS 100 ML IV SCH (21:00)
[2025-02-10] MEDS ORDERED: Fluticasone 0.05% Nasal Spray SCH (21:00)
[2025-02-10] MEDS ORDERED: Metoprolol Tartrate 25 MG Tab PO SCH (21:00)
[2025-02-10] MEDS ORDERED: Gabapentin 100 MG Cap PO SCH (21:00)
--- NOTE | 2025-02-10 22:56 | NUR ---
NOTED THAT BILLIARY DRAIN HAS HAD MINIMAL OUTPUT. CONTINUE TO MONITOR
[2025-02-11] VITALS (13 sets, daily range): BP systolic 100–148; BP diastolic 68–95
--- NOTE | 2025-02-11 04:55 | NUR ---
PATIENT IS ON AMIODARONE DRIP AT 16.7 ML/HR. VERY IRREGULAR HEART RHYTHMS. LOTS OF PVS, TACHYCARDIA, SINUS ARRYTHMIA'S. ALERT, NOT ORIENTATED TO PLACE OR TIME. DOES NOT UNDERSTAND NEED FOR TREATMENT. VERY LITTLE TO NO NEW OUTPUT IN BILLIARY DRAIN. SKIN IS RED AROUND INSERTION SITE OF DRAIN. IS NOT HELD BY A STICH. URINE IS SHIRA PERI. INCONTINENT OF LOOSE LIQUID STOOL TONIGHT. CONTINUE CARE.
[2025-02-11 05:27] LABS: BASOPHILS PERCENT AUTO 0 % (0-2); EOSINOPHILS PERCENT AUTO 0 % (0-6); Hematocrit 28.7 % (37.0-53.0); Hemoglobin 8.8 g/dL (13.5-17.5); IMMATURE GRAN ABSOLUTE AUTO 0.07 K/mm3 (0.00-0.10); IMMATURE GRAN PERCENT AUTO 2 % (0-1); LYMPHOCYTES ABSOLUTE AUTO 1.23 K/mm3 (0.84-5.20); LYMPHOCYTES PERCENT AUTO 34 % (21-46); MONOCYTES ABSOLUTE AUTO 1.03 K/mm3 (0.16-1.47); MONOCYTES PERCENT AUTO 29 % (4-13); Mean Corpuscular HGB 24.5 pg (26.0-34.0); Mean Corpuscular HGB Conc 30.7 g/dL (31.5-36.5); Mean Corpuscular Volume 80 fL (80-100); NEUTROPHILS ABSOLUTE AUTO 1.28 K/mm3 (1.96-9.15); NEUTROPHILS PERCENT AUTO 36 % (41-73); Platelet Count 87 K/mm3 (150-400); RDW Standard Deviation 74.8 fL (35.1-46.3); Red Blood Cell Count 3.59 M/mm3 (4.30-5.90); White Blood Cell Count 3.61 K/mm3 (4.00-11.30)
[2025-02-11 05:43] LABS: Bun/Creatinine Ratio 33.8 (12.0-20.0); Calcium, Blood 7.4 mg/dL (8.5-10.1); Creatinine, Blood 0.68 mg/dL (0.60-1.20); Potassium, Blood 3.5 mmol/L (3.5-5.5)
[2025-02-11] MEDS ORDERED: Levothyroxine Sodium 0.075 MG Tab PO SCH (06:00)
--- NOTE | 2025-02-11 06:34 | NUR ---
STEEL LAYER CALLED NOW TO REPORT 18 BEATS OF V-TACH. PATIENT WAS ASYMPTOMATIC. REMAINS ON THE AMIODARONE DRIP.
[2025-02-11] MEDS ORDERED: Montelukast Sodium 10 MG Tab PO SCH (09:00)
[2025-02-11] MEDS ORDERED: Venlafaxine HCl 75 MG CapCR PO SCH (09:00)
[2025-02-11] MEDS ORDERED: dilTIAZem HCL 120 MG CAP.CD PO SCH (09:00)
[2025-02-11] MEDS ORDERED: Amiodarone HCl 200 MG Tab PO SCH (10:45)
[2025-02-11] MEDS ORDERED: Cefepime HCl 1,000 MG in NS 100 ML IV SCH (11:00)
[2025-02-11] MEDS ORDERED: Vancomycin HCL 2,000 MG in NS 500 ML IV SCH (12:00)
[2025-02-11 14:37] LABS: Free Thyroxine 1.12 ng/dL (0.70-1.60); Thyroid Stimulating Hormone 3.69 uIU/mL (0.360-4.800)
--- NOTE | 2025-02-11 17:26 | NUR ---
SHIFT SUMMARY PT REMAINS IN PCU WITH A FLUXUATING APPROPRIATENESS WITH CONVERSATIONS, PT APPEARS TO HAVE FREQUENT FLIGHT OF IDEAS. PT HAD REMAINED IN A MAT RHYTHM IN THE 110'S THROUGHOUT THE DAY UNTIL APPROXIMATELY 1700 THE PT WENT INTO AN A FLUTTER TACHYCARDIA 130-160'S. MD KAPADIA WAS NOTIFIED AND ORDERED TO GIVE THE METOPROLOL AND AMIODORONE NIGHT DOSE EARLY. WILL CONTINUE TO MONITOR, PT BP STABLE AND PT IS NOT SOB.
[2025-02-11] MEDS ORDERED: Metoprolol Tartrate 1 MG/ML 5 ML VIAL IV PRN (18:10)
[2025-02-11] MEDS ORDERED: Metoprolol Tartrate 25 MG Tab PO SCH (21:00)
[2025-02-11] MEDS ORDERED: Lactobacil 2-S.Thermo-Bifido 1 1 Cap PO SCH (21:00)
[2025-02-12] VITALS (7 sets, daily range): BP systolic 106–118; BP diastolic 77–90
[2025-02-12] MEDS ORDERED: Vancomycin HCL 1,500 MG in NS 250 ML IV SCH
[2025-02-12 05:59] LABS: BASOPHILS PERCENT AUTO 0 % (0-2); EOSINOPHILS ABSOLUTE AUTO 0.01 K/mm3 (0.00-0.68); EOSINOPHILS PERCENT AUTO 0 % (0-6); Hematocrit 30.5 % (37.0-53.0); Hemoglobin 9.5 g/dL (13.5-17.5); IMMATURE GRAN ABSOLUTE AUTO 0.12 K/mm3 (0.00-0.10); IMMATURE GRAN PERCENT AUTO 3 % (0-1); LYMPHOCYTES ABSOLUTE AUTO 1.53 K/mm3 (0.84-5.20); LYMPHOCYTES PERCENT AUTO 37 % (21-46); MONOCYTES ABSOLUTE AUTO 1.18 K/mm3 (0.16-1.47); MONOCYTES PERCENT AUTO 28 % (4-13); Mean Corpuscular HGB 24.7 pg (26.0-34.0); Mean Corpuscular HGB Conc 31.1 g/dL (31.5-36.5); Mean Corpuscular Volume 79 fL (80-100); NEUTROPHILS ABSOLUTE AUTO 1.34 K/mm3 (1.96-9.15); NEUTROPHILS PERCENT AUTO 32 % (41-73); Platelet Count 103 K/mm3 (150-400); RDW Coefficient Variation 25.2 % (11.7-14.2); Red Blood Cell Count 3.84 M/mm3 (4.30-5.90); White Blood Cell Count 4.18 K/mm3 (4.00-11.30)
[2025-02-12 06:21] LABS: Bun/Creatinine Ratio 34.7 (12.0-20.0); Calcium, Blood 7.3 mg/dL (8.5-10.1); Creatinine, Blood 0.78 mg/dL (0.60-1.20); Potassium, Blood 3.8 mmol/L (3.5-5.5)
--- NOTE | 2025-02-12 07:52 | NUR ---
SHIFT SUMMARY: PT IS A&OX2-3, HE IS CONFUSED AT TIMES AND HAS FLIGHT OF IDEAS. HE IS T[place]-BILOXI. VSS ON RA. PT REMAINS IN MULTIFOCAL ATRIAL TACHYCARDIA 110-120'S. PT DENIES PAIN. BILIARY DRAIN HAD A TOTAL OUTPUT THIS SHIFT OF 15ML. AREA AROUND INSERTION SIGHT IS RED. IT FELT TO THIS RN THAT HE HAD FLUID BUILDUP UNDER SKIN FROM AROUND THIS DRAIN SITE. PT HAS A STAGE 3 PRESSURE ULCER TO HIS COCCYX. COMPLETED WOUND CARE MULTIPLE TIMES D/T PT BEING INCONTINENT OF BOWEL. STOOL IS LOOSE, AND BILL COLORED. PENN CATHETER DRAINING MINIMAL AMOUNTS, 175 ML THIS SHIFT OF PERI COLORED URINE. NIGHT RESIDENT MADE AWARE OF BOTH BILIARY DRAIN AND PENN CATHETER OUTPUT. NEW VERBAL ORDER TO INCREASE IVF TO 150/HR T/O THE NIGHT. PT IS X2 ASSIST, NOOB THIS SHIFT. PT IS TOLERATING A SOFT/BITE SIZE DIET, BUT HAS POOR PO INTAKE. TAKES HIS PILLS WHOLE, MULTIPLE AT A TIME WITH WATER. BED IN LOWEST POSITION, CALL LIGHT WITHIN REACH. BED ALARM SET FOR PT'S SAFETY. HE HAS NOT USED HIS CALL LIGHT TO CALL THIS RN, FREQUENT ROUNDING COMPLETED.
[2025-02-12] MEDS ORDERED: NS 250 ML IV PRN (10:15)
--- NOTE | 2025-02-12 13:58 | NUR ---
MET WITH PT AND 2 DAUGHTERS, REQUESTED BY BUILDING REPAIR MAINTENANCE SUPERVISOR. THE DAUGHTERS INITIALY REQUEST PEG TUBE FOR THEIR DAD THE PATIENT, BUT PHYSICIAN STATES PT IS NOT A SURGICAL CANDIDATE. PT HAS NOT BEEN WORKING WITH THERAPY DUE TO WEAKNESS, "JUST TIRED" ACCORDING TO PATIENT. HOWEVER, BOTH DAUGHTERS CONTINUE TO ENCOURAGE THE PATIENT TO "TRY." ENCOURAGED PT TO DECIDE, BUT HE CONTINUES TO DEFER TO DAUGHTERS. HE DOES AGREE TO DOBHOFF. PHYSICIAN AWARE, ORDERED DOBHOFF AND BUILDING REPAIR MAINTENANCE SUPERVISOR CONSULT.
[2025-02-12] MEDS ORDERED: NS 1,000 ML IV SCH (16:25)
[2025-02-12] MEDS ORDERED: NS 500 ML IV ONE (16:25)
--- NOTE | 2025-02-12 16:53 | NUR ---
SHIFT SUMMARY PT A&Ox3, WAKES UP DISORIENTED AND IS FORGETFUL AT TIMES BUT IS ABLE TO BE REORIENTED. PT REMAINED BEDREST AND REFUSED TO WORK WITH THERAPY, Q2 TURNS PROVIDED. BP STABLE, SINUS 90-100's WITH PAC/PVCs, DENIES CP/PRESSURE. SpO2> 92% RA, DENIES SOB. PT WITH MINIMAL PERI URINE OUTPUT, DISCUSSED WITH PHYSICIAN - ORDERS PLACED. PT WITH INCONTINENT, LOOSE, BROWN/CHOWDARY, PASTY STOOL. WOUND CARE PROVIDED AND MEPILEX CHANGED ON COCCYX PRESSURE ULCER. PT REFUSED DOBHOFF PLACEMENT AT THIS TIME, WILL READDRESS TOMORROW. PT WITH NO SOLID PO INTAKE AND MINIMAL PO FLUIDS. BILI DRAIN ASSESSED BY IR PHYSICIAN, INSTRUCTED TO CLAMP DRAIN AND REMOVE BAG. NO OTHER EVENTS, WILL REPORT TO ONCOMING RN.
[2025-02-12 19:53] LABS: Adenovirus Not Detected (NOT DETECT); Bordetella pertussis Not Detected (NOT DETECT); Chlamydophila pneumoniae Not Detected (NOT DETECT); Coronavirus 229E Not Detected (NOT DETECT); Coronavirus HKU1 Not Detected (NOT DETECT); Coronavirus NL63 Not Detected (NOT DETECT); Coronavirus OC43 Not Detected (NOT DETECT); Human Metapneumovirus Not Detected (NOT DETECT); Human Rhinovirus/Enterovirus Not Detected (NOT DETECT); Influenza A/2009-H1 Not Detected (NOT DETECT); Influenza A/H1 Not Detected (NOT DETECT); Influenza A/H3 Not Detected (NOT DETECT); Influenza B Not Detected (NOT DETECT); Mycoplasma pneumoniae Not Detected (NOT DETECT); Parainfluenza Virus 1 Not Detected (NOT DETECT); Parainfluenza Virus 2 Not Detected (NOT DETECT); Parainfluenza Virus 3 Not Detected (NOT DETECT); Parainfluenza Virus 4 Not Detected (NOT DETECT); Respiratory Syncytial Virus Not Detected (NOT DETECT); SARS-Cov-2 (COVID-19), BioFire Not Detected (NOT DETECT)
--- NOTE | 2025-02-12 22:06 | NUR ---
ASSUMPTION OF CARE THIS RN ASSUMED CARE OF PATIENT AT 1900. PT A&O X3-4. DISORIENTED WHEN WOKEN UP BUT IS EASILY REORIENTED. WEAKNESS T/O. PT REPORTS BEING TIRED. ON RA. SR/ST PAC'S/PVC'S. BP STABLE. INCONTINENT OF BM. PENN CATHETER PATENT AND DRAINING TO GRAVITY. REPOSITIONING Q2HRS. MEDIPORT ACCESSED AND INFUSING NS PER EMAR. SCD'S IN PLACE. BED ALARM ON. BED IN LOWEST POSITION AND CALL LIGHT WITHIN REACH.
[2025-02-13 02:07] LABS: TSH RECEPTOR ANTIBODY <1.10 IU/L (<=1.75)
[2025-02-13 03:26] VITALS: BP 102/84
[2025-02-13 03:31] LABS: Hematocrit 28.6 % (37.0-53.0); Mean Corpuscular HGB 25.1 pg (26.0-34.0); Mean Corpuscular HGB Conc 31.5 g/dL (31.5-36.5); Mean Corpuscular Volume 80 fL (80-100); Platelet Count 102 K/mm3 (150-400); RDW Coefficient Variation 24.7 % (11.7-14.2); RDW Standard Deviation 71.6 fL (35.1-46.3); Red Blood Cell Count 3.58 M/mm3 (4.30-5.90); White Blood Cell Count 4.46 K/mm3 (4.00-11.30)
[2025-02-13 03:54] LABS: Albumin, Blood 1.6 g/dL (3.4-5.0); Albumin/Globulin Ratio 0.7 (0.8-1.8); Bilirubin, Direct 0.9 mg/dL (0.0-0.3); Bilirubin, Indirect 0.6 mg/dL (0.1-0.7); Bilirubin, Total 1.5 mg/dL (0.1-1.0); Bun/Creatinine Ratio 30.6 (12.0-20.0); Calcium, Blood 7.2 mg/dL (8.5-10.1); Creatinine, Blood 1.21 mg/dL (0.60-1.20); Globulin, Blood 2.3 g/dL (2.2-4.0); Potassium, Blood 4.1 mmol/L (3.5-5.5); Total Protein, Blood 3.9 g/dL (6.4-8.2)
--- NOTE | 2025-02-13 04:48 | NUR ---
SHIFT SUMMARY SEE PREVIOUS NOTE. VSS AND UNCHANGED. NEURO UNCHANGED. PT CALLING APPOPRIATELY AND ABLE TO MAKE NEEDS KNOWN. SKAGWAY. REPOSITIONING Q2HRS. MEPILEX ON COCCYX C/D/I. INCONTINENT STOOL NOTED. PENN CATHETER PATENT AND DRAINING TO GRAVITY. NS INFUSING PER EMAR INTO MEDIPORT. BED IN LOWEST POSITION AND CALL LIGHT WITHIN REACH. BED ALARM ON FOR SAFETY. THIS RN WILL REPORT TO ONCOMING DAYSHIFT RN.
[2025-02-13 04:50] LABS: BAND PERCENT MAN 1 % (0-8); BASOPHILS ABSOLUTE MAN 0.04 K/mm3 (0.00-0.23); BASOPHILS PERCENT MAN 1 % (0-2); EOSINOPHILS PERCENT MAN 0 % (0-6); LYMPHOCYTES % ATYPICAL MANUAL 1 % (0-0); LYMPHOCYTES ABSOLUTE MAN 1.56 K/mm3 (0.84-5.20); LYMPHOCYTES PERCENT MAN 34 % (21-46); METAMYELOCYTE ABSOLUTE MAN 0.04 K/mm3 (0.00-0.00); METAMYELOCYTE PERCENT MAN 1 % (0-0); MONOCYTES ABSOLUTE MAN 1.15 K/mm3 (0.16-1.47); MONOCYTES PERCENT MAN 26 % (4-13); NEUTROPHILS ABSOLUTE MAN 1.65 K/mm3 (1.96-9.15); SEG NEUTROPHILS PERCENT MAN 36 % (41-73); TOTAL CELLS COUNTED 100
[2025-02-13 08:21] VITALS: BP 119/86
[2025-02-13] MEDS ORDERED: Sodium Bicarbonate 650 MG Tab PO SCH (09:00)
[2025-02-13] MEDS ORDERED: Metoprolol Tartrate 50 MG Tab PO SCH (09:00)
--- NOTE | 2025-02-13 10:46 | NUR ---
PT WAS NOT AGREEABLE W/DHT THIS MORNING, THEN WHEN THE DR AND ANOTHER RN WENT IN AND SPOKE WITH HIM HE AGREED TO HAVE IT PLACED. WHEN I WENT IN TO PLACE IT HE AGREED TO PLACEMENT, SO I PROCEEDED WITH PLACEMENT. WHILE WAITING FOR X-RAY VERIFICATION I HEARD THE PT MAKING NOISES SO I ENTERED THE ROOM AND SAW THAT HE HAD THE DHT PULLED MOST OF THE WAY OUT. WHEN I ASKED HIM WHY HE PULLED IT OUT, HE SAID "I CAN'T HAVE IT IN, IT HURTS. I CAN'T DO IT." I RE-EDUCATED HIM ON THE REASON IT WAS PLACED AND HE STILL KEPT PULLING ON IT. SO I REMOVED THE DHT COMPLETELY.
--- NOTE | 2025-02-13 11:15 | NUR ---
Update Pt daughter Rachana to pt rm. Daughter upset pt does not have tube for tube feeding. Daughter w/ aggressive questioning of the absence of a tube for tube feeding. Situation explained to pt daughter. Pt daughter then yelling at pt. Stating "What are you doing! That's meant to provide nutrition!" Daughter Rachana continuing to yell & scold pt. Pt stating to daughter "it hurt. I didn't want it." This RN explaining to daughter, "he made the decision that it is not what he wants & we are honoring his decision. Please be loving to him." Second daughter now to rm. Daughters closed door for private conversation amongst selves.
[2025-02-13 12:25] LABS: Vancomycin, Trough 37.5 ug/mL (5.0-10.0)
[2025-02-13] MEDS ORDERED: Dose Adjust by Pharmacy XX STA (12:45)
[2025-02-13 12:48] VITALS: BP 105/78
--- NOTE | 2025-02-13 14:40 | NUR ---
PALLIATIVE CARE NOTE: MET WITH FAMILY (DAUGHTER NAHUM, DANIELLA AND BROTHER TO PT) TO DISCUSS PT DECLINE. NAHUM RN ALSO PRESENT. EXPLAINED CLINICAL SIGNS OF DECLINE IN LAMENS TERMS, DISCUSSED PT REFUSING DOBHOFF FEEDING TUBE AND INCREASED CONFUSION AND PT PHYSICAL SIGNS AND SYMPTOMS OF DECLINE. ENCOURAGED FAMILY TO MEET AND DISCUSS HOSPICE SERVICES AT THIS POINT SINCE PT IS REFUSING DOBHOFF. PT MAY NOT BENEFIT FROM FEEDING TUBE ANYHOW HE DOES NOT WISH TO EAT. GAVE EMOTIONAL AND MORAL SUPPORT TO FAMILY. DAUGHTER AGREEABLE TO TALK WITH HER SISTER EYAD TO DISCUSS HOSPICE SERVICES. SHE STATES SHE WOULD PREFER HER DAD TO GO TO [place] [facility] OR [facility] NO ONE WILL BE ABLE TO STAY WITH HER FATHER STRATEGY INTERN. UPDATED PRIMARY RN ON PLAN.
[2025-02-13 15:58] VITALS: BP 112/84
--- NOTE | 2025-02-13 16:46 | NUR ---
A&O to name & , he is on RA. Patient has had increased confusion today. He is SKAGWAY and wears hearing aids, he has a aguilar that is draining tsering colored urine to gravity. He has not had much urine output today even though he is getting NS @ 125ml/hr. And he refused all meals today and did not eat the snacks that were brought to him.
[2025-02-13 19:36] VITALS: BP 110/77
--- NOTE | 2025-02-13 19:46 | NUR ---
VITALS PREVIOUS DAYSHIFT RN LOCKED IN VITALS CHARTING. THIS RN UNABLE TO CHART IN VITALS. RESPIRATION RATE OF 24 AT THIS TIME. SEE CHART FOR OTHER VITALS
[2025-02-14 00:39] VITALS: BP 90/62
[2025-02-14 03:58] VITALS: BP 102/85
[2025-02-14 04:07] LABS: Hematocrit 27.5 % (37.0-53.0); Hemoglobin 8.7 g/dL (13.5-17.5); Mean Corpuscular HGB 25.1 pg (26.0-34.0); Mean Corpuscular HGB Conc 31.6 g/dL (31.5-36.5); Mean Corpuscular Volume 80 fL (80-100); Platelet Count 113 K/mm3 (150-400); RDW Standard Deviation 71.3 fL (35.1-46.3); Red Blood Cell Count 3.46 M/mm3 (4.30-5.90); White Blood Cell Count 5.19 K/mm3 (4.00-11.30)
[2025-02-14 04:33] LABS: Alanine Aminotransfer (ALT/SGP 10 U/L (12-78); Albumin, Blood 1.6 g/dL (3.4-5.0); Albumin/Globulin Ratio 0.7 (0.8-1.8); Alk Phos 85 U/L (50-136); Anion Gap 16 mmol/L (3-11); Aspartate Aminotrans (AST/SGOT 14 U/L (12-37); Bilirubin, Total 1.3 mg/dL (0.1-1.0); Blood Urea Nitrogen 49 mg/dL (8-24); Bun/Creatinine Ratio 28.5 (12.0-20.0); CO2, Blood 13 mmol/L (21-32); Calcium, Blood 7.5 mg/dL (8.5-10.1); Chloride, Blood 113 mmol/L (98-108); Creatinine, Blood 1.72 mg/dL (0.60-1.20); Globulin, Blood 2.4 g/dL (2.2-4.0); Glomerular Filtration Rate 42 (60-); Glucose, Blood 77 mg/dL (70-99); Potassium, Blood 4.3 mmol/L (3.5-5.5); Sodium, Blood 138 mmol/L (136-145)
--- NOTE | 2025-02-14 05:10 | NUR ---
SHIFT SUMMARY THIS RN ASSUMED CARE OF PATIENT AT 1900. PT CONFUSED AT TIMES DURING THIS SHIFT, SPECIFICALLY WHEN PT IS WOKEN UP. PT REACHING OUT INTO THE AIR AT TIMES. SLOW TO RESPOND TO QUESTIONS. ORIENTED TO SELF, PLACE, AND SITUATION. UNSURE OF DATE DURING THIS SHIFT. KNOWS YEAR. SR/ST ON MONITOR WITH PAC'S/PVC'S. SBP 90-100'S. MAP>65. CORE TEMP 99.3-99.9. MOTTLING NOTED ON ABDOMEN AND THIGHS. PT REFUSING TO EAT DURING THIS SHIFT. ENCOURAGING FLUIDS. NS INFUSING PER EMAR. POOR URINE OUTPUT; MD AWARE. TACHYPNEA NOTED. REFUSED BREATHING TREATMENT BY RT. REFUSED MEDICATIONS DESPITE EDUCATION. PT REPORTING THAT HE WAS TIRED WHEN ATTEMPTING TO TAKE MEDS AND REFUSED TO TAKE BICARB/PROBIOTIC. PT BEING REPOSITIONED Q2HRS. INCONTINENT STOOL NOTED. TEMP PENN CATHETER PATENT AND DRAINING TO GRAVITY. BED IN LOWEST POSITION AND CALL LIGHT WITHIN REACH. THIS RN WILL REPORT TO ONCOMING DAYSHIFT RN.
[2025-02-14 07:50] VITALS: BP 103/80
[2025-02-14] MEDS ORDERED: Sodium Bicarb 8.4% Inj 150 MEQ in Dextrose 5% 1,000 ML IV SCH (08:05)
[2025-02-14] MEDS ORDERED: Morphine Sulfate 20 MG/1ML 1 ML Oral Syringe SL PRN (10:45)
[2025-02-14] MEDS ORDERED: Atropine Sulfate 1% Opth Soln 2ML BTL SL PRN (10:45)
[2025-02-14] MEDS ORDERED: LORazepam 1 MG Tab PO PRN (10:45)
[2025-02-14] MEDS ORDERED: Scopolamine Hydrobromide Patch TOP PRN (10:45)
--- NOTE | 2025-02-14 14:25 | NUR ---
TRANSFERRED PT TO [facility] VIA BED W/HIS PERSONAL BELONGINGS. HE IS A&O TO SELF ON RA. ROXANOL WAS ADMINISTERED PER EMAR PRIOR TO TRANSFER. DAUGHTERS @ BEDSIDE. PENN DRAINING PERI URINE TO GRAVITY AND BILIARY DRAIN TO R ABD THAT IS CLAMPED.
--- NOTE | 2025-02-14 14:39 | NUR ---
MET WITH PATIENT AND FAMILY. GOALS OF CARE HAD BEEN DISCUSSED ON PREVIOUS VISITS. FAMILY HAD DECIDED TO TRANSITION TO COMFORT CARE AND MOVE TOWARDS HOSPICE. DISCUSSED THIS WITH PROVIDER AND ORDERS PLACED.
--- NOTE | 2025-02-14 15:27 | NUR ---
ASSUMPTION OF CARE NOTE: PATIENT ARRIVES TO ROOM AT 1427 VIA BED FROM PCU RM 17. ASSUME CARE OF PATIENT. PATIENT ALERT AND ORIENTED TO SELF ONLY, CONFUSED. SKIN ASSESSMENT c 2 RN'S VERIFIED COMPLETED. DENAE CARE AND ATTENDS CHANGED. PATIENT REPOSITIONED c BILAT SIDE/LE'S ELEVATED ON PILLOWS, HEEL PROTECTOR IN PLACED TO BILAT HEEL FOR COMFORT. PATIENT ON COMFORT CARE MEASURE. PATIENT FAMILY AT BEDSIDE. PATIENT HAS MEDIPORT TO R UPPER CHEST WALL INFUSING KVO. CALL LIGHT IN REACH.
--- NOTE | 2025-02-14 16:21 | NUR ---
"Spiritual Care Visit | Comfort Care Pt. is on comfort care and is mostly not responsive. Family members are present. Facilitated introductions and an update. Life Story is shared, and the Pts. jose alfredo is considered. Prayed for the Pt. and family. Communicated that though the weekend an on-call job coach/job developer could be called. Family veerbalized gratitude for the spiritual care visit."
--- NOTE | 2025-02-14 18:21 | NUR ---
SHIFT NOTE: PATIENT HAS HAD NO NEW CHANGES SINCE ARRIVED TO ROOM. PATIENT MEDICATED FOR PAIN AND REPOSITIONED FOR COMFORT. ORAL CARE DONE. PATIENT HAS PENN, PATENT DRAINING SMALL AMT OF PERI COLOR URINE TO GRAVITY. PATIENT HAS MEDI PORT TO R UPPER CHEST WALL INFUSING KVO. BED IN LOWEST POSITIONED. CALL LIGHT IN REACH. FAMILY AT BEDSIDE ON/OFF.
[2025-02-14] MEDS ORDERED: Acetaminophen 650 MG Supp PR PRN (20:25)
--- NOTE | 2025-02-15 11:06 | NUR ---
SHIFT NOTE: PATIENT NONRESPONSIVE. PATIENT HAS FACIAL GRIMACES, RESPIRATION 25 BREATHS/MIN c GURGLING SOUNDS. PATIENT REPOSITIONED TO L SIDE c HOB ELEVATED 45 DEGREES, ORAL CARE AND SUCTIONED TO HELP c SECRETION AND FOR COMFORT. PATIENT MEDICATED c ATROPINE FOR SECRETION. PATIENT DAUGHTER (MIKEY) AT BEDSIDE. MIKEY EDUCATED c RESPIRATORY SECRETION IT IS COMMON OCCURENCE A PERSON DYING, NOT ABLE TO SWALLOW AND CLEAR THIER OWN SECRETIONS. MIKEY VERBALIZED UNDERSTANDING AND STATED "I WILL LET YOU KNOW IF MY DAD NEEDS MORPHINE AND ATIVAN." AT 0835 ROUND ON PATIENT, MIKEY AT BEDSIDE AND REQUESTING THIS RN TO MEDICATE PATIENT c 10 MG ROXANOL AND ATIVAN. PATIENT MEDICATED c ROXANOL AND ATIVAN PER DAUGHTER REQUEST. MIKEY LEFT THE ROOM AT AROUND 0900. REASSESS PATIENT AT 0910, RESPIRATION 18-20 BREATHS/MIN, GURGLING SOUNDS HAS IMPROVED. AT AROUND 1038 ROUND ON PATIENT. PATIENT HAS NO PULSE, RESP, PERRLA NOT REACTING TO LIGHT. NOTIFIED FIELD RESEARCH ASSISTANTFÉLIX AND CONFIRMED TOD 1038. PATIENT DAUGHTER MIKEY ARRIVED IN ROOM AT 1040. DR. HAAS NOTIFIED c TOD.
--- NOTE | 2025-02-15 14:27 | NUR ---
2111- THIS RN CALLED [phone] FOR PT'S CREMATION SERVICES. THIS RN GAVE ALL REQUESTED PT INFO. SHOE STOCK ASSOCIATE INFORMED THIS RN THEY WERE "195 MILES AWAY." [facility] STATED THEY WILL CALL BACK WITH ETA FOR PICKING UP PT'S BODY. FAMILY OF PT ALL INFORMED. PRIMARY RN INFORMED.
--- NOTE | 2025-02-15 14:33 | NUR ---
1435- [facility] CALLED AND STATED THEY WOULD BE AT THE HOSPITAL TO DIESEL DINKEY OPERATOR PT'S BODY "WITHIN ONE HOUR."
--- NOTE | 2025-02-15 15:12 | NUR ---
FINAL NOTE: FAMILY AT BEDSIDE. POST MORTEM CARE DONE. FILI SANTOYO. ALL PERSONAL BELONGINGS WERE SENT c PATIENT DAUGHTER'S (MIKEY & LUIS). PATIENT LEFT THE ROOM AT 1513, TRANSPORTED VIA GURNEY BY KATIA DENG FROM ([facility]).
== END 2025-02-15 10:38 | DRG 919 ==
LOC: ER 15:55 → PCU 18:31 → ERHOLD 18:31 → PCU 02-10 01:21 → MEDS 02-14 14:23
PROVIDERS: Internal Medicine; Student in an Organized Health Care Education/Training Program; ADMIT Internal Medicine
PROC: 0DH67UZ Insertion of Feeding Device into Stomach, Via Natural or Artificial Opening (ICD-10-PCS; principal; 2025-02-09)
PROC: 3E0G76Z Introduction of Nutritional Substance into Upper GI, Via Natural or Artificial Opening (ICD-10-PCS; 2025-02-09)
PROC: 02HV33Z Insertion of Infusion Device into Superior Vena Cava, Percutaneous Approach (ICD-10-PCS; 2025-02-09)
PROC: 30233J1 Transfusion of Nonautologous Serum Albumin into Peripheral Vein, Percutaneous Approach (ICD-10-PCS; 2025-02-10)
PROC: 3E03329 Introduction of Other Anti-infective into Peripheral Vein, Percutaneous Approach (ICD-10-PCS; 2025-02-10)
PROC: 0T9B70Z Drainage of Bladder with Drainage Device, Via Natural or Artificial Opening (ICD-10-PCS; 2025-02-10)
DX: T85.520A Displacement of bile duct prosthesis, initial encounter (principal); E43 Unspecified severe protein-calorie malnutrition; G92.8 Other toxic encephalopathy; J18.9 Pneumonia, unspecified organism; R18.8 Other ascites; C88.40 Extranodal marginal zone B-cell lymphoma of mucosa-associated lymphoid tissue [MALT-lymphoma] not having achieved remission; I48.19 Other persistent atrial fibrillation; J90 Pleural effusion, not elsewhere classified; I48.92 Unspecified atrial flutter; Z66 Do not resuscitate; Z51.5 Encounter for palliative care; F41.9 Anxiety disorder, unspecified; F32.A Depression, unspecified; I10 Essential (primary) hypertension; E03.9 Hypothyroidism, unspecified; E86.0 Dehydration; D50.9 Iron deficiency anemia, unspecified; Y83.8 Other surgical procedures as the cause of abnormal reaction of the patient, or of later complication, without mention of misadventure at the time of the procedure; E05.80 Other thyrotoxicosis without thyrotoxic crisis or storm; T46.2X5A Adverse effect of other antidysrhythmic drugs, initial encounter; R62.7 Adult failure to thrive; D69.6 Thrombocytopenia, unspecified; F43.10 Post-traumatic stress disorder, unspecified; Z87.19 Personal history of other diseases of the digestive system; Z79.51 Long term (current) use of inhaled steroids; Z79.890 Hormone replacement therapy; Z79.899 Other long term (current) drug therapy; Z88.8 Allergy status to other drugs, medicaments and biological substances; Z87.891 Personal history of nicotine dependence; Z68.21 Body mass index [BMI] 21.0-21.9, adult
CPT/HCPCS: 0202U; 36415; 51702; 71045; 74160; 74177; 80048; 80053; 80202; 81001; 82247; 82248; 83520; 83605; 83735; 84100; 84439; 84443; 84484; 85025; 85027; 85610; 87040; 87086; 92526; 92610; 93005; 93010; 94640; 94664; 94760; 94762; 96365-59; 96366-59; 96367-59; 99285-25; A9270; J0282; J0456; J0692; J0696; J1160; J3370; J7030; J7040; J7050; J7060; J7070; P9047; Q9967